=== PATIENT | male | born 1970 | race Caucasian/White ===

== ENCOUNTER 2022-03-01 12:43 | Outpatient (REF) | payer OTHER, SELFPAY ==
--- NOTE | ~2022-03-01 | XR_ITS ---
EXAMINATION: XR FINGER, LEFT CLINICAL INFORMATION: Pain around nailbed index finger. Assess for foreign body. COMPARISON: None TECHNIQUE: AP view left hand and 2 views left index finger are obtained. FINDINGS: Normal bony mineralization. No fracture, dislocation, destructive process, or periostitis. No visible radiopaque soft tissue from body or gas tracking in the soft tissue planes. There are osteoarthritic changes first carpometacarpal joint. XR/XR finger LT min 2V IMPRESSION: -No visible radiopaque soft tissue foreign body, gas tracking in soft tissues, destructive process. -Osteoarthritis first carpometacarpal joint.
== END 2022-03-01 12:44 | disposition home or self-care (01) ==
LOC: HO.XRAY 12:43
PROVIDERS: PCP Internal Medicine; Visit Provider Emergency Medicine
DX: S60.451A Superficial foreign body of left index finger, initial encounter (principal); X58.XXXA Exposure to other specified factors, initial encounter; Y93.9 Activity, unspecified; Y92.9 Unspecified place or not applicable; Y99.9 Unspecified external cause status
CPT/HCPCS: 73140

== ENCOUNTER → 2022-03-06 10:29 | Outpatient (BNVA) | payer OTHER, SELFPAY | PROVIDERS: PCP Internal Medicine; Visit Provider Physician Assistant | DX: S60.451A Superficial foreign body of left index finger, initial encounter (principal) | CPT/HCPCS: 99202 ==

== ENCOUNTER 2022-04-01 07:51 | Day surgery (SDC) | payer OTHER, SELFPAY ==
[2022-04-01 08:19] VITALS: BP 159/94; PULSE 82; RESP 16; TEMP 36.3; O2SAT 98
[2022-04-01 08:20] VITALS: BMI 32.8
[2022-04-01 09:48] VITALS: BP 131/91; PULSE 78; RESP 16; TEMP 36.2; O2SAT 95
--- NOTE | 2022-04-01 09:51 | MHC.SHP ---
Pre-Procedural Eval Section A Date of Service: 04/01/22 Section B Chief Complaint: FB Foreign body Allergies: Allergies Allergy/AdvReac Type Severity Reaction Status Date / Time No Known Allergies Allergy Verified 03/06/22 10:45 Plan I have reviewed the history and physical and performed a pertinent physical examination on my patient. No changes have occurred unless specified.
--- NOTE | 2022-04-01 10:03 | W.PM.OPN ---
Operative Note Operative Note Date of Service: 04/01/22 Narrative: Operative Note Preop diagnosis: 1. left index finger foreign body Postop diagnosis: same Procedure: 1. left index finger nail plate removal 2. left index finger removal of foreign body from nail bed Surgeon: Charlotte Ramos MD Anesthesia: digital block using 1% lidocaine with epinephrine Findings: fragments of brown foreign body were adherent to the underside of the nail plate. Evidence of injury to the radial aspect of the nail bed. Small piece of foreign body removed from the radial aspect of the nail bed. No other foreign bodies or masses appreciated. EBL: Less than 5 mL Tourniquet time: None Specimens: None Complications: None Disposition: Brought to recovery room in stable condition Plan: Follow-up for 7-10 days for wound check He may remove the dressing in 4 days and at that point wash the wound with soap and water. He can then put a small amount of antibiotic ointment on the nail bed daily. He should keep it clean for at least 2 weeks , until there was good healing. Anticipate new nail growth over the next few months. Indications: The patient is 51 years old, with left index finger foreign body beneath the nail plate . The risks and benefits of operative treatment including but not limited to risk of damage to blood vessels, nerves, tendons, infection, persistent pain, persistent symptoms, recurrence or possible need for additional surgery were discussed with the patient and the patient wishes to proceed with surgery. Procedure: Once consent was obtained a digital block was performed in the preop area using a combination of 1% lidocaine with epinephrine. The patient was then brought back to the operating suite and placed on the operative table in supine position. A tourniquet was applied to the proximal aspect of the left upper extremity and the limb was prepped and draped in a standard surgical fashion. Once assured that we had a good block, I used a [place] elevator to elevate the nail plate from the underlying nail bed, and to then remove the nail plate and placed on the back table. Along the radial aspect of the nail there was some brown foreign body fragments, presumed to be wooden splinters adherent to the under side of the radial aspect of the nail plate. I then evaluated the nail bed. There was a small dark piece of foreign body that I was able to remove from the radial aspect of the nail bed. No other foreign bodies and no masses were appreciated. Once satisfied with Nail plate removal and foreign body removal, the wound was copiously irrigated with normal saline and hemostasis was obtained with a brief period of local pressure. small amount of antibiotic ointment was placed on the nail bed and a sterile dressing was applied. The patient appears to have tolerated the procedure well and with no complications. All digits were well vascularized at the conclusion of the case.
== END 2022-04-01 10:00 | disposition home or self-care (01) ==
PROVIDERS: PCP Internal Medicine; Visit Provider Orthopaedic Surgery
PROC: (CPT 11730; principal; 2022-04-01 12:10)
DX: S60.451A Superficial foreign body of left index finger, initial encounter (principal); W45.8XXA Other foreign body or object entering through skin, initial encounter; Y93.H3 Activity, building and construction; Y92.69 Other specified industrial and construction area as the place of occurrence of the external cause; Y99.0 Civilian activity done for income or pay; E78.5 Hyperlipidemia, unspecified; E11.9 Type 2 diabetes mellitus without complications
CPT/HCPCS: 11730; 10120; J0171; J2795

== ENCOUNTER 2022-11-29 15:15 | Outpatient (REF) | payer OTHER, SELFPAY ==
--- NOTE | ~2022-11-29 | XR_ITS ---
EXAMINATION: XR CHEST CLINICAL INFORMATION: Cough COMPARISON: None available. TECHNIQUE: 2 views of the chest were obtained. FINDINGS: The cardiomediastinal silhouette is within normal limits. The lungs are well expanded. There is no focal consolidation, edema, or effusion. No pneumothorax. No acute osseous abnormality. Thoracic spine degeneration XR/XR chest 2V IMPRESSION: No acute pulmonary process seen.
[2022-11-29 16:40] LABS: Appearance Urine Clear; Color Urine Yellow; Glucose Urine UA Negative (Negative); Leukocyte Esterase Urine Negative (Negative); Nitrite Urine Negative (Negative); PH 5.5 (5.0-9.0); Urine Blood Negative (Negative); Urine Ketones Trace mg/dL (Negative); Urine Protein Negative (Neg-Trace)
[2022-11-29 17:38] LABS: Creatinine Urine 159.13 mg/dL; Microalbum/Creatinine Ratio Ur 6.9 ug/mg cr
[2022-11-29 17:51] LABS: Alanine Aminotransferase 34 U/L (0-40); Albumin Level 4.1 g/dL (3.5-5.0); Alkaline Phosphatase 67 U/L (39-117); Anion Gap 14 (12-20); Aspartate Amino Transferase 44 U/L (5-37); Blood Urea Nitrogen 15 mg/dL (9-16); Calcium 9.3 mg/dL (8.4-10.2); Carbon Dioxide 23 mmol/L (22-29); Chloride 108 mmol/L (96-108); Cholesterol 205 mg/dL; Estimated Glomerular Filt Rate > 60; Glucose Fasting 161 mg/dL (60-99); HDL Cholesterol 36 mg/dL; Potassium 3.9 mmol/L (3.3-5.1); Sodium 141 mmol/L (135-145); Total Protein 6.7 g/dL (6.5-8.0); Triglycerides 428 mg/dL
[2022-11-29 18:07] LABS: Prostate Specific Antigen Scr 0.43 ng/mL (<0.05-4.0); TSH reflex Free T4 0.67 uIU/mL (0.32-4.0)
== END 2022-11-29 15:16 | disposition home or self-care (01) ==
LOC: HO.HMGCX 15:15
PROVIDERS: PCP Family Medicine; Visit Provider Family Medicine
DX: Z00.00 Encounter for general adult medical examination without abnormal findings (principal); R05.9 Cough, unspecified; I10 Essential (primary) hypertension; Z12.5 Encounter for screening for malignant neoplasm of prostate
CPT/HCPCS: 36415; 71046; 80053; 80061; 81003; 82043; 84153; 84443

== ENCOUNTER 2023-01-31 09:59 | Outpatient (REF) | payer OTHER, SELFPAY ==
[2023-01-31 12:24] LABS: Cholesterol 362 mg/dL; HDL Cholesterol 34 mg/dL; Triglycerides 1375 mg/dL
[2023-02-02 10:58] LABS: LDL Cholesterol Direct 77 mg/dL (<100)
== END 2023-01-31 10:00 | disposition home or self-care (01) ==
LOC: HO.WFDLDS 09:59
PROVIDERS: Visit Provider Family Medicine
DX: Z00.00 Encounter for general adult medical examination without abnormal findings (principal); E78.5 Hyperlipidemia, unspecified
CPT/HCPCS: 36415; 80061; 83721

== ENCOUNTER 2023-02-21 14:03 | Outpatient (REF) | payer OTHER, SELFPAY ==
--- NOTE | ~2023-02-21 | XR_ITS ---
EXAMINATION: XR SHOULDER, RIGHT CLINICAL INFORMATION: Right shoulder pain COMPARISON: None available. TECHNIQUE: Three views of the right shoulder. FINDINGS: No acute abnormality. No fracture or subluxation. There is mild osteophyte formation at inferior aspect of glenohumeral joint. The humeral head is well-positioned over the glenoid. There is mild osseous hypertrophy of the greater tuberosity. No suspicious bone lesions. The clavicle and acromioclavicular joint are unremarkable. There are no prominent osteophytes projecting from the undersurface of the acromioclavicular joint and the subacromial space is maintained. No evidence of calcific tendinopathy. The visualized right lung is normal. The visualized right-sided ribs are intact. XR/XR shoulder RT min 2V IMPRESSION: * No fracture or malalignment at the right shoulder. * Mild osteoarthritis of the glenohumeral joint.
== END 2023-02-21 14:04 | disposition home or self-care (01) ==
LOC: HO.HMGCX 14:03
PROVIDERS: PCP Family Medicine; Visit Provider Family Medicine
DX: M25.511 Pain in right shoulder (principal)
CPT/HCPCS: 73030

== ENCOUNTER 2023-05-16 16:28 | Outpatient (AMB) | payer OTHER, SELFPAY ==
[2023-05-16 16:41] VITALS: BP 132/72; PULSE 89; O2SAT 98; BMI 34.9
--- NOTE | 2023-05-16 16:41 | A.OFFPC_ITS ---
Vital Signs 05/16/23 16:41 Height 5 ft 3 in Weight 197 lb BMI 34.9 BP 132/72 Blood Pressure Location Lt brachial Position Sitting Pulse 89 Pulse Source Pulse Oximeter Pulse Oximetry (%) 98 Oxygen Delivery Method Room Air Intake Visit Reasons: f/u HLD, diabetes, elevated liver enzymes Intake Note: Patient is here to follow up on HDL, diabetes, and liver enzymes. Allergies No Known Allergies Allergy (Verified 05/16/23 16:44) Medication List - Last Reconciled 05/16/23 by Saravanan Valle MD blood pressure test kit-large As directed blood sugar diagnostic (FreeStyle Lite Strips) As directed 2x/day cefadroxil 500 mg PO BID doxycycline hyclate 100 mg PO BID fenofibrate 160 mg PO DAILY 90 days lancets (FreeStyle Lancets) As directed 2x/day metformin 500 mg PO BID 30 days metoprolol succinate ER 12.5 mg (1/2 x 25 mg) PO DAILY 30 days Tobacco use date assessed: 05/16/23 Dental Screening Dental Screen Date: 05/16/23 Did you have a dental visit in the last 12 months?: Yes Did you have a dental problem in the last 6 months where you did not have access to dental care?: Yes Was dental information given to patient?: Patient has dentist HPI f/u HLD, diabetes, elevated liver enzymes HPI Details 52 y/o male presents to f/u HLD, diabet es, and elevated liver enzymes. Last A1c 01/31/23 7.6%. A1c today 05/16/23 is 9.2%. He reports he has not started on his metformin 500mg b.i.d. yet. Labs were drawn 01/31/23. Reviewed labs with pt. Triglycerides worsened from 428 to 1375. TC 362. LDL TNP. HDL low at 34. Had started him on fenofibrate last office visit. He notes he thinks he may have had eaten before he got his labs drawn. No recent liver enzymes. Blood pressure today 132/72. He is on metoprolol 12.5mg daily. Shoulder x-ray 02/21/23 showed mild osteoarthritis of the glenohumural joint of R shoulder. Pt reports a testicular bump that has not changed in 10 years. Pt reports heartburn all the time. 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 Hermes Becker, Cuca Martines, Pablo Dick and colleagues, with an educational saulo from [employer]. Review of Systems Const Denies chills, Denies fatigue, Denies fever(s), Denies headache(s) and Denies weakness ENT Denies dizziness and Denies headache(s) Card Denies dyspnea Resp Denies cough, Denies dyspnea, Denies wheezing and Denies other (shortness of breath) Musc Denies numbness and Denies tingling Neuro Denies dizziness, Denies headache(s), Denies numbness, Denies tingling and Denies weakness Psych Denies anxiety and Denies depression Endo Denies fatigue Aller/Immun Denies wheezing Physical exam (Primary Care) Vital Signs: Last Vital Signs Pulse 89 05/16/23 16:41 BP 132/72 05/16/23 16:41 Pulse Ox 98 05/16/23 16:41 Oxygen Delivery Method Room Air 05/16/23 16:41 BMI result Body Mass Index 34.9 Tobacco/Smoking Status: Tobacco use Status Tobacco use date assessed 05/16/23 05/16/23 16:51 Patient Tobacco Use Status Never used Tobacco 05/16/23 16:51 e-Cigarette/Vaping Use Never Used 05/16/23 16:42 Thrive Assessment: Date of Thrive Assessment Date Thrive assessed 11/06/22 05/16/23 16:42 Const General: well developed; No acute distress Nutritional Appearance: obese Orientation/consciousness: patient oriented x3 HENMT Head: Yes normocephalic and Yes atraumatic Eyes General: appearance normal, both eyes and all related structures Pupils: Equal, round and reactive pupils present EOM: EOMs intact bilaterally Resp Effort & Inspection: normal respiratory effort Neuro General: patient oriented x3 and gait normal Cranial nerves: Yes Equal, round and reactive pupils present Psych Affect: normal affect Assessment and Plan Assessment & Plan (1) Type 2 diabetes mellitus: Code(s): E11.9 - Type 2 diabetes mellitus without complications Plan: A1c has worsened to 9.2% from 7.6%. Goal is less than 7.0% Patient acknowledges that he has not tried metformin much at all. He agrees to try this and I encouraged him to work at consistency with this (2) Hyperlipemia: Code(s): E78.5 - Hyperlipidemia, unspecified Plan: Triglycerides were 428 Gave him a script for fenofibrate but he notes that he has not taken it much. More recently triglycerides were over a 1000 but patient acknowledges that he ages before having his labs drawn. Will repeat labs fasting Encouraged him to take fenofibrate consistently. Patient agrees. (3) Elevated liver enzymes: Code(s): R74.8 - Abnormal levels of other serum enzymes Plan: Due to repeat liver enzymes Order Will follow-up by telemedicine in a couple of weeks (4) Hypertension: Code(s): I10 - Essential (primary) hypertension Plan: Started patient on metoprolol at prior visit. Blood pressure is controlled. Goal is less than 140/90 Continue current medication regimen (5) Right shoulder pain: Code(s): M25.511 - Pain in right shoulder Plan: X-ray showed arthritis. Also likely has some tendinopathy-referred to physical therapy (6) GERD (gastroesophageal reflux disease): Code(s): K21.9 - Gastro-esophageal reflux disease without esophagitis Plan: Trial omeprazole Orders: Orders Comprehensive [place]. Panel Fast Today Z00.00 - Encounter for general adult medical examination without abnormal findings PT Evaluation and Treatment Today M25.511 - Pain in right shoulder Lipid Panel Today Z00.00 - Encounter for general adult medical examination without abnormal findings AMB Hemoglobin A1c Today Z13.9 - Encounter for screening, unspecified Medications: New omeprazole 20 mg PO DAILY 30 caps 1RF 30 days Coding Level of Care Code Est Pt Level 4 (83154) Diagnoses Type 2 diabetes mellitus E11.9 Hyperlipemia E78.5 Elevated liver enzymes R74.8 Hypertension I10 Right shoulder pain M25.511 GERD (gastroesophageal reflux disease) K21.9
== END 2023-05-16 17:18 | disposition home or self-care (01) ==
PROVIDERS: PCP Family Medicine; Visit Provider Family Medicine
DX: E11.9 Type 2 diabetes mellitus without complications (principal); I10 Essential (primary) hypertension; K21.9 Gastro-esophageal reflux disease without esophagitis; E78.5 Hyperlipidemia, unspecified; R74.8 Abnormal levels of other serum enzymes; M25.511 Pain in right shoulder
CPT/HCPCS: 99214

== ENCOUNTER 2023-05-26 09:20 | Outpatient (REF) | payer OTHER, SELFPAY ==
[2023-05-26 13:20] LABS: Alanine Aminotransferase 22 U/L (0-40); Albumin Level 4.2 g/dL (3.5-5.0); Alkaline Phosphatase 62 U/L (39-117); Anion Gap 12 (12-20); Aspartate Amino Transferase 25 U/L (5-37); Blood Urea Nitrogen 12 mg/dL (9-16); Calcium 9.8 mg/dL (8.4-10.2); Carbon Dioxide 23 mmol/L (22-29); Chloride 107 mmol/L (96-108); Cholesterol 218 mg/dL (<200); Estimated Glomerular Filt Rate > 60; Glucose Fasting 183 mg/dL (60-99); HDL Cholesterol 32 mg/dL (>40); LDL Cholesterol Calculated 121 mg/dL (<100); Sodium 138 mmol/L (135-145); Total Protein 7.1 g/dL (6.5-8.0); Triglycerides 325 mg/dL (<150)
== END 2023-05-26 09:21 | disposition home or self-care (01) ==
LOC: HO.HMGCLDS 09:20
PROVIDERS: PCP Family Medicine; Visit Provider Family Medicine
DX: Z00.00 Encounter for general adult medical examination without abnormal findings (principal)
CPT/HCPCS: 36415; 80053; 80061

== ENCOUNTER 2023-06-05 14:19 | Outpatient (AMB) | payer OTHER, SELFPAY ==
--- NOTE | 2023-06-05 14:14 | MHC.PC.OV ---
Intake Visit Reasons: f/u labs Intake Note: Patient is calling to follow up on his blood work today. Allergies No Known Allergies Allergy (Verified 06/05/23 14:15) Tobacco use date assessed: 06/05/23 HPI f/u labs HPI Details 52 y/o male presents to f/u labs via telemedicine. Labs were drawn 05/26/23. Reviewed labs with pt. Fasting glucose 185. Triglycerides improved from 1375 to 325. TC 218. LDL 121. HDL low at 32. He had noted last office visit he had fries before his labs. Liver enzymes within normal range. He notes he had started walking for exercise. 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 Hermes Becker, Cuca Martines, Pablo Dick and colleagues, with an educational saulo from [employer]. Physical exam (Primary Care) Tobacco/Smoking Status: Tobacco use Status Tobacco use date assessed 06/05/23 06/05/23 14:17 Patient Tobacco Use Status Never used Tobacco 06/05/23 14:17 e-Cigarette/Vaping Use Never Used 06/05/23 14:17 Thrive Assessment: Date of Thrive Assessment Date Thrive assessed 11/06/22 06/05/23 14:17 Telehealth Telehealth Location of provider rendering services: practice address Location of patient: address on file Patient Identification confirmed using: Name, : Yes Telehealth method: voice only Patient verbally consented to treatment: Yes Patient verbally consented to billing insurance company: Yes Patient informed of any privacy concerns related to visit: Yes Minutes spent on Phone/Video with Pt.: 8 Assessment and Plan Assessment & Plan (1) Hyperlipemia: Code(s): E78.5 - Hyperlipidemia, unspecified Plan: Triglycerides?were?over?a?1000?at?last?check?but?patient?noted?that?he?did?not?fast?well. Repeated?this?and?triglycerides?at?325?which?is?more?consistent?with?his?prior?testing?at?428 Encouraged?him?to?work?at?more?consistency?with?fenofibrate Will?recheck?in?a?few?months (2) Elevated liver enzymes: Code(s): R74.8 - Abnormal levels of other serum enzymes Plan: Repeat?of?liver?enzyme?show?that?they?are?back?within?normal?range (3) Low HDL (under 40): Code(s): E78.6 - Lipoprotein deficiency Plan: Low?HDL.??I?encouraged?exercise Will?recheck?in?a?few?months Orders: Orders Comprehensive [place]. Panel Fast Today R74.8 - Abnormal levels of other serum enzymes, Z00.00 - Encounter for general adult medical examination without abnormal findings Lipid Panel Today E78.6 - Lipoprotein deficiency, Z00.00 - Encounter for general adult medical examination without abnormal findings Coding Level of Care Code Tele Est Pt Level 2 (02987) Diagnoses Hyperlipemia E78.5 Elevated liver enzymes R74.8 Low HDL (under 40) E78.6
== END 2023-06-05 16:50 ==
LOC: HO.HMGFM 14:19
PROVIDERS: PCP Family Medicine; Visit Provider Family Medicine
DX: E78.5 Hyperlipidemia, unspecified (principal); R74.8 Abnormal levels of other serum enzymes; E78.6 Lipoprotein deficiency
CPT/HCPCS: 99212

== ENCOUNTER 2024-03-22 15:30 | Outpatient (AMB) | payer OTHER, SELFPAY ==
[2024-03-22 15:37] VITALS: BP 118/76; PULSE 99; O2SAT 98; BMI 33.9
--- NOTE | 2024-03-22 15:37 | MHC.PC.OV ---
Vital Signs 03/22/24 15:37 Height 5 ft 3 in Weight 191 lb 6 oz BMI 33.9 BP 118/76 Blood Pressure Location Rt brachial Position Sitting Pulse 99 Pulse Source Pulse Oximeter Pulse Oximetry (%) 98 Oxygen Delivery Method Room Air Intake Visit Reasons: BP follow up/needs A1C Intake Note: Aliza is a 53 year old male who presents to the office today for a BP follow up/ A1C done. Allergies No Known Allergies Allergy (Verified 03/22/24 15:41) Medication List - Last Reconciled 03/22/24 by Saravanan Valle MD blood pressure test kit-large As directed blood sugar diagnostic (FreeStyle Lite Strips) As directed 2x/day fenofibrate 160 mg PO DAILY 90 days lancets (FreeStyle Lancets) As directed 2x/day metformin 500 mg PO BID 30 days metoprolol succinate ER 12.5 mg (1/2 x 25 mg) PO DAILY 30 days omeprazole 20 mg PO DAILY 30 days Tobacco use date assessed: 06/05/23 Dental Screening Dental Screen Date: 03/22/24 Did you have a dental visit in the last 12 months?: Yes Did you have a dental problem in the last 6 months where you did not have access to dental care?: No Was dental information given to patient?: Patient has dentist HPI BP follow up/needs A1C HPI Details 53 y/o male presents to f/u hyperlipidemia including hypertriglyceridemia. He is on fenofibrate. No recent labs to review. A1c today 03/22/24 is 9.1%. He is on metformin 500mg b.i.d. Has not been taking metformin consistently. Blood pressure today 118/76. He is on metoprolol 12.5mg daily. 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 1. Little interest or pleasure in doing things: not at all 2. Feeling down, depressed, or hopeless: not at all 3. Trouble falling or staying asleep, or sleeping too much: several days 4. Feeling tired or having little energy: not at all 5. Poor appetite or overeating: not at all 6. Feeling bad about yourself - or that you are a failure or have let yourself or your family down: not at all 7. Trouble concentrating on things, such as reading the newspaper or watching television: not at all 8. Moving or speaking so slowly that other people could have noticed. Or the opposite - being so fidgety or restless that you have been moving around a lot more than usual: not at all 9. Thoughts that you would be better off or of hurting yourself in some way: not at all Total score: 1 Source: Developed by Drs. Hermes Becker, Cuca Martines, Pablo Dick and colleagues, with an educational saulo from [employer]. Thrive Questionnaire Date Thrive assessed: 03/22/24 I am a: Patient What is your living situation today?: I have a steady place to live Within the past 12 months, did the food you bought not last and you didn't have the money to get more?: Never true Within the past 12 months, did you worry whether your food would run out before you got money to buy more?: Never true Do you have trouble paying for medicines?: No Do you have trouble getting transportation to medical appointments?: No Do you have trouble paying your heating and electricity bill?: No Do you have trouble taking care of your child, family member or friend?: No Do you have trouble with day-to-day activities such as bathing, preparing meals, shopping, managing finances, etc.?: No Are you currently unemployed and looking for a job?: No Are you interested in more education?: No THRIVE Score: 0 AUDIT C Alcohol Use Questionnaire (AUDIT-C) 1. How often do you have a drink containing alcohol?: Monthly or less 2. How many drinks containing alcohol do you have on a typical day when you are drinking?: 1 or 2 3. How often do you have six or more drinks on one occasion?: Never Total Score: 1 RICHARD-7 AMB Questionnaire RICHARD-7 Date RICHARD - 7 assessed: 03/22/24 Feeling nervous, anxious, or on edge: 0 = Not at all Not being able to stop or control worryin = Not at all Worrying too much about different things: 0 = Not at all Trouble relaxin = Not at all Being so restless that it is hard to sit still: 0 = Not at all Becoming easily annoyed or irritable: 0 = Not at all Feeling afraid as if something awful might happen: 0 = Not at all Total RICHARD-7 score (0-4 normal; 5-9 mild; 10-14 moderate; 15-21 severe): 0 Source: Developed by Drs. Hermes Becker, Cuca Martines, Pablo Dick and colleagues, with an educational saulo from [employer]. Review of Systems Const Denies chills, Denies fatigue, Denies fever(s), Denies headache(s) and Denies weakness ENT Denies dizziness and Denies headache(s) Card Denies dyspnea Resp Denies cough, Denies dyspnea, Denies wheezing and Denies other (shortness of breath) Musc Denies numbness and Denies tingling Neuro Denies dizziness, Denies headache(s), Denies numbness, Denies tingling and Denies weakness Psych Denies anxiety and Denies depression Endo Denies fatigue Aller/Immun Denies wheezing Physical exam (Primary Care) Vital Signs: Last Vital Signs Pulse 99 03/22/24 15:37 BP 118/76 03/22/24 15:37 Pulse Ox 98 03/22/24 15:37 Oxygen Delivery Method Room Air 03/22/24 15:37 BMI result Body Mass Index 33.9 Tobacco/Smoking Status: Tobacco use Status Tobacco use date assessed 06/05/23 03/22/24 15:39 Patient Tobacco Use Status Never used Tobacco 03/22/24 15:39 e-Cigarette/Vaping Use Never Used 03/22/24 15:39 PHQ-9: PHQ-9 Score PHQ-9: Total score 1 03/22/24 15:45 Thrive Assessment: Date of Thrive Assessment Date Thrive assessed 03/22/24 03/22/24 15:45 Const General: well developed; No acute distress Nutritional Appearance: well nourished Orientation/consciousness: patient oriented x3 HENMT Head: Yes normocephalic and Yes atraumatic Eyes General: appearance normal, both eyes and all related structures Pupils: Equal, round and reactive pupils present EOM: EOMs intact bilaterally Resp Effort & Inspection: normal respiratory effort Skin Other: Insect sting on both anterior forearms which are red, erythematous with some stinging lesions/bite marlow Neuro General: patient oriented x3 and gait normal Cranial nerves: Yes Equal, round and reactive pupils present Psych Affect: normal affect Results AMB Hemoglobin A1c AMB Hemoglobin A1c 9.1 % Last Edit by Ann Fleming CMA on 03/22/24 15:54 Results Reviewed Results Reviewed: Laboratory Last Values Hgb A1c (Clinic) 9.1 % (4.0-6.0) H 03/22/24 15:54 Assessment and Plan Assessment & Plan (1) Type 2 diabetes mellitus: Code(s): E11.9 - Type 2 diabetes mellitus without complications Plan: A1c?9.1%?today.??Goal?is?less?than?7%? Patient?notes?that?he?has?not?been?taking?his?medication?as?prescribed He?will?work?at?consistency?with?medications Follow-up?in?about?3?months (2) Hypertension: Code(s): I10 - Essential (primary) hypertension Plan: Blood?pressure?is?controlled.??Goal?is?less?than?140/90 Continue?medication?as?prescribed (3) Hyperlipemia: Code(s): E78.5 - Hyperlipidemia, unspecified Plan: Triglycerides?had?been?high?and?improved?with?fenofibrate. LDL?cholesterol?was?high?and?HDL?was?low He?has?not?gotten?his?labs?drawn?and?I?asked?him?to?get?them?done?next?week.??Will?follow-up?by?telemedicine?in?about?a?month?to?adjust?medication?if?needed (4) Low HDL (under 40): Code(s): E78.6 - Lipoprotein deficiency Plan: As?above (5) Insect bite: Code(s): W57.XXXA - Bitten or stung by nonvenomous insect and other nonvenomous arthropods, initial encounter Plan: Insect?bites?on?bilateral?forearms?with?local?allergic?reaction Patient?declines?oral?steroid Gave?him?a?script?for?betamethasone?and?recommended?cold?compresses Orders: Orders Comprehensive [place]. Panel Fast Today E11.9 - Type 2 diabetes mellitus without complications, Z00.00 - Encounter for general adult medical examination without abnormal findings Lipid Panel Today E78.5 - Hyperlipidemia, unspecified, Z00.00 - Encounter for general adult medical examination without abnormal findings AMB Hemoglobin A1c Today E11.9 - Type 2 diabetes mellitus without complications Medications: New betamethasone valerate 0.1% 1 appl topical BID 14 days PRN 45 grams 0RF skin irritation Refilled fenofibrate 160 mg PO DAILY 90 days 90 tabs 3RF metformin 500 mg PO BID 30 days 60 tabs 2RF metoprolol succinate ER 12.5 mg (1/2 x 25 mg) PO DAILY 30 days 15 tabs 2RF Coding Level of Care Code Est Pt Level 4 (70126) Diagnoses Type 2 diabetes mellitus E11.9 Hypertension I10 Hyperlipemia E78.5 Low HDL (under 40) E78.6 Insect bite W57.XXXA
== END 2024-03-22 16:09 | disposition home or self-care (01) ==
PROVIDERS: PCP Family Medicine; Visit Provider Family Medicine
DX: E11.69 Type 2 diabetes mellitus with other specified complication (principal); I10 Essential (primary) hypertension; E78.5 Hyperlipidemia, unspecified; E78.6 Lipoprotein deficiency; W57.XXXA Bitten or stung by nonvenomous insect and other nonvenomous arthropods, initial encounter
CPT/HCPCS: 83036; 99214

== ENCOUNTER 2024-03-29 09:47 | Outpatient (REF) | payer OTHER, SELFPAY ==
[2024-03-29 14:33] LABS: Alanine Aminotransferase 20 U/L (0-40); Albumin Level 4.3 g/dL (3.5-5.0); Alkaline Phosphatase 63 U/L (39-117); Anion Gap 10 (12-20); Aspartate Amino Transferase 21 U/L (5-37); Bilirubin Total 0.9 mg/dL (0.0-1.0); Blood Urea Nitrogen 11 mg/dL (9-16); Carbon Dioxide 25 mmol/L (22-29); Chloride 108 mmol/L (96-108); Cholesterol 216 mg/dL (<200); Estimated Glomerular Filt Rate > 60; Glucose Fasting 176 mg/dL (60-99); HDL Cholesterol 35 mg/dL (>40); Potassium 4.2 mmol/L (3.3-5.1); Sodium 139 mmol/L (135-145); Total Protein 7.2 g/dL (6.5-8.0); Triglycerides 430 mg/dL (<150)
== END 2024-03-29 09:48 | disposition home or self-care (01) ==
LOC: HO.HMGCLDS 09:47
PROVIDERS: PCP Family Medicine; Visit Provider Family Medicine
DX: Z00.00 Encounter for general adult medical examination without abnormal findings (principal); E11.9 Type 2 diabetes mellitus without complications; E78.5 Hyperlipidemia, unspecified
CPT/HCPCS: 36415; 80053; 80061

== ENCOUNTER → 2024-04-26 16:15 | Outpatient (AMB) | payer OTHER, SELFPAY ==
--- NOTE | 2024-04-26 16:11 | A.OFFPC_ITS ---
Intake Visit Reasons: f/u labs via telemedicine Intake Note: f/u for lab review Allergies No Known Allergies Allergy (Verified 04/26/24 16:12) Tobacco use date assessed: 06/05/23 Dental Screening Dental Screen Date: 03/22/24 HPI f/u labs via telemedicine HPI Details 53 y/o male presents to review lipid [place] via telemedicine. Labs drawn 03/29/24. Reviewed labs with pt. Triglycerides worsened from 325 to 430. TC 216. LDL TNP. HDL low at 35. He is on fenofibrate 160mg daily. Liver enzymes are fine. HPI Comments History of Present Illness Details Documentation assistance for Saravanan Valle MD, was provided by Ranjan Carl, Management Department Chair on 04/26/2024 at 4:45 PM EST. I, Dr. Valle, have read, observed, and verified documentation. 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 Hermes Becker, Cuca Martines, Pablo Dick and colleagues, with an educational saulo from [employer]. Physical exam (Primary Care) Tobacco/Smoking Status: Tobacco use Status Tobacco use date assessed 06/05/23 04/26/24 16:14 Patient Tobacco Use Status Never used Tobacco 04/26/24 16:14 e-Cigarette/Vaping Use Never Used 04/26/24 16:14 Thrive Assessment: Date of Thrive Assessment Date Thrive assessed 03/22/24 04/26/24 16:14 Telehealth Telehealth Telehealth Platform: Telephone Location of provider rendering services: practice address Location of patient: address on file Patient Identification confirmed using: Name, : Yes Telehealth method: voice only Patient verbally consented to treatment: Yes Patient verbally consented to billing insurance company: Yes Patient informed of any privacy concerns related to visit: Yes Minutes spent on Phone/Video with Pt.: 5 Assessment and Plan Assessment & Plan (1) Hyperlipemia: Code(s): E78.5 - Hyperlipidemia, unspecified Plan: Patient?still?has?significantly?high?triglycerides. Will?have?him?continue?fenofibrate?and?add?Crestor Also?encouraging?him?to?control?his?blood?sugar?which?should?also ?improve?his?triglycerides Will?recheck?at?a?visit?subsequent?to?his?scheduled?visit?in?June. (2) Low HDL (under 40): Code(s): E78.6 - Lipoprotein deficiency Plan: Encouraged?increasing?exercise (3) Type 2 diabetes mellitus: Code(s): E11.9 - Type 2 diabetes mellitus without complications Plan: Patient's?A1c?was?too?high?at?last?visit He?is?now?taking?metformin?500?mg?b.i.d.?regularly?as?prescribed Will?follow-up?on?A1c?again?at?his?next?visit?in?June Medications: New rosuvastatin 20 mg PO DAILY 90 days 90 tabs 2RF E78.2 - Mixed hyperlipidemia Coding Level of Care Code Tele Est Pt Level 2 (19485) Diagnoses Hyperlipemia E78.5 Low HDL (under 40) E78.6 Type 2 diabetes mellitus E11.9
== END ==
LOC: HO.HMGFM 16:15
PROVIDERS: PCP Family Medicine; Visit Provider Family Medicine
DX: E78.5 Hyperlipidemia, unspecified (principal); E78.6 Lipoprotein deficiency; E11.9 Type 2 diabetes mellitus without complications
CPT/HCPCS: 99212

== ENCOUNTER 2024-06-26 10:31 | Inpatient (IN) | payer OTHER, SELFPAY ==
[2024-06-26] VITALS (7 sets, daily range): BP systolic 136–171; BP diastolic 61–103; PULSE 90–107; RESP 16–18; TEMP 36.5–37.2; O2SAT 97–99; BMI 35.1
--- NOTE | ~2024-06-26 | XR_ITS ---
EXAMINATION: XR HAND, LEFT CLINICAL INFORMATION: Left hand third digit swelling. COMPARISON: None available. TECHNIQUE: PA, lateral, and oblique views of the left hand. FINDINGS: Soft tissue swelling is noted in the proximal half of the third finger. There is no evidence of underlying osseous destruction or periosteal reaction. No focal erosion is seen. 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 Normal osseous mineralization. No evidence of acute/healing fracture or dislocation. Soft tissue swelling is also noted over the dorsum of the hand. No evidence of soft tissue air. No soft tissue calcifications or radiopaque foreign body are seen. XR/XR hand LT min 3V IMPRESSION: Soft tissue swelling in the left hand third finger and over the dorsum of the hand. No radiographic evidence of underlying osteomyelitis. No evidence of acute or healing fracture. Electronically signed by: Saqib Akins MD 06/26/2024 11:06 AM EDT
[2024-06-26 11:30] LABS: MANUAL DIFF FLAG NO
[2024-06-26 11:49] LABS: Alanine Aminotransferase 24 U/L (0-40); Alkaline Phosphatase 83 U/L (39-117); Anion Gap 12 (12-20); Aspartate Amino Transferase 29 U/L (5-37); Bilirubin Total 1.5 mg/dL (0.0-1.0); Blood Urea Nitrogen 10 mg/dL (9-16); Calcium 9.7 mg/dL (8.4-10.2); Carbon Dioxide 23 mmol/L (22-29); Chloride 104 mmol/L (96-108); Creatinine Clr Calc Pharmacy 86.9; Estimated Glomerular Filt Rate > 60; Glucose Random 241 mg/dL (60-115); Potassium 3.9 mmol/L (3.3-5.1); Sodium 135 mmol/L (135-145); Total Protein 6.9 g/dL (6.5-8.0)
[2024-06-26 11:50] LABS: Basophils Percent Auto 0.2 % (0-2); Eosinophils Absolute Auto 0.1 X10*3/uL (0.0-0.4); Eosinophils Percent Auto 0.9 % (0-4); Hematocrit 43.5 % (42.0-52.0); Hemoglobin 15.4 g/dl (14.0-18.0); Imm Gran Abs Auto 0.04 X10*3/uL (0.00-0.03); Imm Gran Pct Auto 0.5 % (0.0-0.4); Lymphocytes Absolute Auto 1.4 X10*3/uL (1.2-4.9); Lymphocytes Percent Auto 16.3 % (20-40); Mean Corpuscular HGB Conc 35.4 g/dl (31.0-36.0); Mean Corpuscular Volume 87.5 fL (80.0-98.0); Mean Platelet Volume 11.2 fL (9.4-12.4); Monocytes Absolute Auto 0.7 X10*3/uL (0.1-1.2); Monocytes Percent Auto 8.2 % (2-11); Neutrophils Absolute Auto 6.3 x10*3/uL (2.0-8.3); Neutrophils Percent Auto 73.9 % (45-73); Platelet Count 142 X10*3/uL (160-400); Red Blood Count 4.97 X10*6/uL (4.60-5.80); Red Cell Distribution Width 12.4 % (11.0-16.0); White Blood Count 8.6 X10*3/uL (4.8-10.8)
--- NOTE | 2024-06-26 12:22 | ED_ITS ---
HPI - Wound/Laceration General Chief Complaint: Wound/Laceration Stated Complaint: l hand swelling and mid finger inj at work Time Seen by Provider: 06/26/24 11:01 Source: patient Mode of arrival: ambulatory Limitations: no limitations History of Present Illness ED Provider: Pilar Angel APRN HPI narrative: 53 yo male right-hand dominant here with complaints of 1 week of left 3rd digit swelling, redness, pain and difficulty with movement. Denies any fevers, chills, numbness, tingling of the extremities. Of note patient reports he has history of diabetes but is noncompliant with medication. Related Data Home Medications ?Medication ?Instructions ?Recorded ?Confirmed blood pressure test kit-large #1 ea 03/06/22 03/22/24 Previous Rx's ?Medication ?Instructions ?Recorded blood sugar diagnostic (FreeStyle #50 ea 05/08/23 Lite Strips) lancets 28 gauge (FreeStyle #100 ea 05/08/23 Lancets) fenofibrate 160 mg tablet 160 mg PO DAILY 90 days #90 tabs 03/22/24 metformin 500 mg tablet 500 mg PO BID 30 days #60 tabs 03/22/24 metoprolol succinate 25 mg 12.5 mg (1/2 x 25 mg) PO DAILY 30 06/25/24 tablet,extended release 24 hr days #15 tabs Allergies Allergy/AdvReac Type Severity Reaction Status Date / Time No Known Allergies Allergy Verified 06/26/24 10:41 Review of Systems 2 Review of Systems: Yes all other systems are reviewed and are negative Constitutional: Constitutional: Reports no additional constitutional complaints, Denies body ache(s), Denies chills, Denies fever(s), Denies headache(s) and Denies weakness Eyes: Eyes: Reports no additional eye complaints and Denies change in vision ENT: Reports system reviewed and no additional complaints, except as documented, Denies dizziness, Denies headache(s), Denies nasal congestion, Denies nasal discharge and Denies neck pain Cardiovascular: Cardiovascular: Reports no additional cardiovascular complaints, Denies chest pain, Denies leg edema and Denies dyspnea Respiratory: Respiratory: Reports no additional respiratory complaints, Denies cough and Denies dyspnea Gastrointestinal: Gastrointestinal: Reports no additional gastrointestinal complaints, Denies abdominal pain, Denies diarrhea, Denies nausea and Denies vomiting Genitourinary: Genitourinary: Denies urinary incontinence Musculoskeletal: Musculoskeletal: Reports no additional musculoskeletal complaints, Denies back pain, Reports arthralgias, Reports joint swelling, Reports limited range of motion, Denies neck pain, Denies numbness and Denies tingling Integumentary/Breasts: Skin/Breast: Reports system reviewed and no additional complaints, except as docu, Reports swelling, Reports erythema and Denies rash Neurologic: Reports system reviewed and no additional complaints, except as documented, Denies Abnormal speech present, Denies dizziness, Denies headache(s), Denies numbness, Denies tingling and Denies weakness [facility] Past Medical History Attestation statement: The following information was validated with the patient. 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 Cognitive needs: No Hearing needs: No Vision needs: No Physical Exam 2 Vital Signs: Vital Signs: Last Vital Signs Temp 97.7 F 06/26/24 12:55 Pulse 102 H 06/26/24 12:55 Resp 18 06/26/24 12:55 BP 144/100 H 06/26/24 12:55 Pulse Ox 97 06/26/24 12:55 O2 Del Method Room Air 06/26/24 12:55 BMI result Body Mass Index 35.1 Const: General: cooperative, healthy appearing, comfortable and no acute distress Orientation/consciousness: patient oriented x3 Limitations: no limitations HEENT: Head: Yes normal to inspection Ears: hearing grossly normal bilaterally General nose exam: Normal external nose present Face and sinus: Yes normal facial exam Mouth: Normal oral and palatal mucosa present Throat: Yes posterior oropharynx normal Eyes: General: appearance normal, both eyes and all related structures P upils: Equal, round and reactive pupils present Neck: Neck: Yes normal visual inspection Chest: Chest palpation & inspection: normal inspection of the chest Resp: Effort & Inspection: normal respiratory effort Auscultation: clear to auscultation bilaterally Cardio: Rate: regular rate Rhythm: regular rhythm Peripheral pulses: P eripheral pulses 2+ throughout GI: Inspection: Yes normal to inspection Palpation (GI): Soft to palpation and nontender Auscultation: normal bowel sounds Back/Spine/Pelvis: Thoracic/Lumbar Spine: thoracic and lumbar spine normal to inspection Skin: General skin exam: no rashes or lesions noted Neuro: General: patient oriented x3, no focal motor deficits and normal sensation to monofilament Cranial nerves: Yes Equal, round and reactive pupils present Cognition (Neuro): normal cognition Speech: No Abnormal speech present Gait exam (Neuro): Normal gait present Motor exam (neuro): 5/5 motor strength present throughout Extrem: Other: Patient has finger held in partial flexion, has pain with attempting extension and is unable and with palpation along the flexor tendon sheath. Compartments are soft and compressible. Sensation normal. FROM of the hand/wrist with no diff Medications Administered Discontinued Medications Generic Name Dose Route Start Last Admin Trade Name Freq PRN Reason Stop Dose Admin Piperacillin Sod/Tazobactam 50 mls @ 100 mls/hr 06/26/24 12:54 06/26/24 13:51 Sod 3.375 gm/ Sodium Chloride IV 06/26/24 13:23 100 mls/hr ONCE ONE Administration Lidocaine HCl 2 ml 06/26/24 12:07 06/26/24 13:32 Lidocaine Hcl 1 % Mpf 2 Ml Vial INFILTRATI 06/26/24 12:08 Not Given ONCE ONE Medical Decision Making Medical Decision Making MDM Narrative: 53 yo male right hand dominant with history of diabetes non med compliant here with clinical tenosynovitis of his left 3rd digit. Will need labs, x-ray Will need IV antibiotics, discussion with Orthopedics and Medicine Differential Diagnosis Differential Diagnoses: The differential diagnosis associated with the presentation includes Tenosynovitis, cellulitis Admission/Observation Consideration of admission/observation: Escalation of care including admission/observation considered Clinical tenosynovitis requiring IV antibiotics and admission Consult Healthcare Provider Management of the patient was discussed with: Hospitalist and Returned Materials Inspector Admitted to medicine 1315 (Celestine) Spoke to orthopedic 1230pm (Heather DANG) recommended admission based on discretion of ER provider with IV antibiotics and warm compresses Lab Data MDM Lab Attestation statement: I reviewed the patient's lab results. 06/26/24 11:24 06/26/24 11:24 Labs: Lab Results 06/26/24 06/26/24 Range/Units 11:24 13:33 WBC 8.6 (4.8-10.8) X10*3/uL RBC 4.97 (4.60-5.80) X10*6/uL Hgb 15.4 (14.0-18.0) g/dl Hct 43.5 (42.0-52.0) % MCV 87.5 (80.0-98.0) fL MCH 31.0 (27.0-33.0) pg MCHC 35.4 (31.0-36.0) g/dl RDW 12.4 (11.0-16.0) % Plt Count 142 L (160-400) X10*3/uL MPV 11.2 (9.4-12.4) fL Immature Gran % (Auto) 0.5 H (0.0-0.4) % Neut % (Auto) 73.9 H (45-73) % Lymph % (Auto) 16.3 L (20-40) % [place] % (Auto) 8.2 (2-11) % Eos % (Auto) 0.9 (0-4) % Baso % (Auto) 0.2 (0-2) % Lymph # (Auto) 1.4 (1.2-4.9) X10*3/uL [place] # (Auto) 0.7 (0.1-1.2) X10*3/uL Eos # (Auto) 0.1 (0.0-0.4) X10*3/uL Baso # (Auto) 0.0 (0.0-0.2) X10*3/uL Abs Immat Gran (auto) 0.04 H (0.00-0.03) X10*3/uL Absolute Neuts (auto) 6.3 (2.0-8.3) x10*3/uL Absolute Nucleated RBC 0.000 (0.0-0.012) X10*3/uL Nucleated RBC % (auto) 0.0 (0.0-0.2) /100WBC ESR 13 (0-15) MM/HR Sodium 135 (135-145) mmol/L Potassium 3.9 (3.3-5.1) mmol/L Chloride 104 (96-108) mmol/L Carbon Dioxide 23 (22-29) mmol/L Anion Gap 12 (12-20) BUN 10 (9-16) mg/dL Creatinine 0.95 (0.5-1.4) mg/dL Estim Creat Clear Calc 86.9 Estimated GFR > 60 Random Glucose 241 H (60-115) mg/dL Lactic Acid 1.1 (0.5-2.0) mmol/L Calcium 9.7 (8.4-10.2) mg/dL Total Bilirubin 1.5 H (0.0-1.0) mg/dL AST 29 (5-37) U/L ALT 24 (0-40) U/L Alkaline Phosphatase 83 (39-117) U/L C-Reactive Protein 1.41 H (< or = 0.50) mg/dL Total Protein 6.9 (6.5-8.0) g/dL Albumin 4.0 (3.5-5.0) g/dL Independent Interpretation I performed an independent interpretation of an: Plain X-Ray Interpretation: I independently viewed the x-ray and agree with the radiology report Radiology Impression Discussion of test interpretation with radiology: I have reviewed the radiologist's reading. Radiologist Impression: [place] [id number] XRay Report Signed Patient: Aliza Douglas MR#: [id number] : 1970 Acct:[id number] Age/Sex: 53 / M ADM Date: 06/26/24 Loc: HO.ED Attending Dr: Ordering Physician: Generic ED Physician Date of Service: 06/26/24 Procedure(s): XR hand LT min 3V Accession Number(s): [id number] cc: Generic ED Physician; Saravanan Valle MD~ EXAMINATION: XR HAND, LEFT CLINICAL INFORMATION: Left hand third digit swelling. COMPARISON: None available. TECHNIQUE: PA, lateral, and oblique views of the left hand. FINDINGS: Soft tissue swelling is noted in the proximal half of the third finger. There is no evidence of underlying osseous destruction or periosteal reaction. No focal erosion is seen. 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 Normal osseous mineralization. No evidence of acute/healing fracture or dislocation. Soft tissue swelling is also noted over the dorsum of the hand. No evidence of soft tissue air. No soft tissue calcifications or radiopaque foreign body are seen. XR/XR hand LT min 3V IMPRESSION: Soft tissue swelling in the left hand third finger and over the dorsum of the hand. No radiographic evidence of underlying osteomyelitis. No evidence of acute or healing fracture. Electronically signed by: Saqib Akins MD 06/26/2024 11:06 AM EDT Workstation: [id number] Independent Historian Clinical information obtained from an independent historian. History obtained from or confirmed by: Friend Critical Care Time Critical Care Time Critical Care Time: Yes Total Critical Care Time: 60 Attestation: Clinical tenosynovitis requiring discussion with hospitalist, orthopedic medicine in conjunction with my attending, admission required Discharge Plan Discharge Clinical Impression: Tenosynovitis Patient Disposition: Admitted As Inpatient
[2024-06-26] MEDS: Piperacillin Sodium/Tazobactam 3.375 GM in 0.9 % Sodium Chloride 50 ML IV ×2 (13:51→20:42)
[2024-06-26 13:57] LABS: C Reactive Protein 1.41 mg/dL (< or = 0.50)
[2024-06-26 14:03] LABS: Lactic Acid 1.1 mmol/L (0.5-2.0)
[2024-06-26 14:11] LABS: Erythrocyte Sedimentation Rate 13 MM/HR (0-15)
--- NOTE | 2024-06-26 14:29 | P.HPHOSP_ITS ---
History of Present Illness Date of Service: 06/26/24 Chief Complaint: Left 3rd finger swelling redness and pain 53-year-old gentleman with past medical history significant for diabetes mellitus type 2, hyperlipidemia, hypertension presented to [facility] due to left 3rd finger redness, swelling of several days duration, now worsening and spreading towards dorsum of hand, as per patient he cut his left 3rd finger with a knife 1 week ago, he cleansed it with alcohol swab, use antibiotic cream and Band-Aid, it was healing well but 5 days ago on Friday he mixed cement with water, and used left hand without gloves to mixed dirty water with the cement and in the evening he noted the cut opened up again, he applied antibiotic cream and Band-Aid but noted to have persistent swelling, redness, and today his friend pointed out that redness is spreading towards dorsum of hand, that made him concerned and come to the ED,he complaints of associated chills, no fevers ,denies nausea, no vomiting, no lightheadedness, dizziness, workup in the emergency room showed a blood sugar of 241 normal WBC, normal electrolytes and renal function, lactic acid 1.1, CRP 1.41, x-ray of hand showed no osteomyelitis but soft tissue swelling 3rd finger and dorsum of hand, blood pressure 144/100 no fevers pulse 102 normal respiratory rate, patient received IV vancomycin and Zosyn , ED provider spoke with orthopedic surgery they recommend medicine to admit patient and use warm soaks. Review of Systems 2 Review of Systems: General no headache no dizziness no fever CVS no chest pain, no palpitation. Respiratory no cough ,no sob Gastrointestinal no nausea, no vomiting, no abdominal pain no urgency no frequency All other system reviewed and are negative [facility] Medical History Type 2 diabetes mellitus Perineal fissure Hyperlipemia Family History Mother High blood pressure Father Diabetes Social History Housing: House Patient Tobacco Use Status: Never used Tobacco e-Cigarette/Vaping Use: Never Used Use of substances other than those prescribed or required for medical reasons: Yes Advance Directives: No Advance Directives Information Provided: No Do you have a plan to hurt others: No Plan Current occupational status: employed 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, 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 Cognitive needs: No Hearing needs: No Vision needs: No Meds Allergies Allergy/AdvReac Type Severity Reaction Status Date / Time No Known Allergies Allergy Verified 06/26/24 10:41 Active Medications: Current Medications Acetaminophen (Acetaminophen 325 Mg Tablet) 650 mg PO Q6H PRN PRN Reason: Pain, Mild (Pain Scale 1-3), fever or headache Calcium Carbonate (Calcium Carbonate 750 Mg Tab.Chew) 750 mg PO Q4H PRN PRN Reason: Heartburn Enoxaparin Sodium (Enoxaparin Sodium 40 Mg/0.4 Ml Syringe) 40 mg SUBCUT Q24H PETER Piperacillin Sod/Tazobactam (Sod 3.375 gm/ Sodium Chloride) 50 mls @ 100 mls/hr IV Q6H PETER Vancomycin HCl 1,500 mg/ (Sodium Chloride) 500 mls @ 333.333 mls/hr IV ONCE ONE Stop: 06/26/24 15:55 Magnesium Hydroxide (Milk Of Magnesia 30 Ml Oral.Susp) 30 ml PO DAILY PRN PRN Reason: Constipation Melatonin (Melatonin 3 Mg Tablet) 6 mg PO BEDTIME PRN PRN Reason: Insomnia Ondansetron HCl (Ondansetron Hcl 4 Mg/2 Ml Vial) 4 mg IVPUSH Q8H PRN PRN Reason: Nausea and Vomiting Pharmacy Consult (Consult Rx Vancomycin Dosing) 1 each MISCELLANE DAILY PRN PRN Reason: Consult order Sodium Chloride (0.9 % Sodium Chloride Flush 3 Ml Syringe) 3 ml IVFLUSH QSHIFT [facility] Home Medications ?Medication ?Instructions ?Recorded ?Confirmed ?Last Taken ?Type blood pressure test kit-large #1 ea 03/06/22 03/22/24 Unknown History Physical Exam 2 Vital Signs and Narrative: Vital Signs: Last Vital Signs Temp 97.7 F 06/26/24 12:55 Pulse 102 H 06/26/24 12:55 Resp 18 06/26/24 12:55 BP 144/100 H 06/26/24 12:55 Pulse Ox 97 06/26/24 12:55 O2 Del Method Room Air 06/26/24 12:55 BMI result Body Mass Index 35.1 Const: Other: General resting comfortably in no acute distress. Anicteric sclera. Neck supple no JVD. CVS regular rate rhythm, Respiratory lungs clear to auscultation, no respiratory distress, no wheeze, no rhonchi. Gastrointestinal abdomen soft, non tender, bowel sounds audible, no guarding , no rigidity. Extremities no LE edema. Neuro non focal Skin no rash Psych appropriate affect Left hand 3rd finger swollen , warm ,hyperemic, no drainage from the cut, redness extending to dorsum of hand, pain with extension Results Labs 06/26/24 11:24 06/26/24 11:24 Labs: Laboratory Results - last 24 hr 06/26/24 06/26/24 11:24 13:33 MCV 87.5 MCH 31.0 MCHC 35.4 RDW 12.4 Plt Count 142 L MPV 11.2 Immature Gran % (Auto) 0.5 H Neut % (Auto) 73.9 H Lymph % (Auto) 16.3 L [place] % (Auto) 8.2 Eos % (Auto) 0.9 Baso % (Auto) 0.2 Lymph # (Auto) 1.4 [place] # (Auto) 0.7 Eos # (Auto) 0.1 Baso # (Auto) 0.0 Abs Immat Gran (auto) 0.04 H Absolute Neuts (auto) 6.3 Absolute Nucleated RBC 0.000 Nucleated RBC % (auto) 0.0 ESR 13 Anion Gap 12 Estim Creat Clear Calc 86.9 Estimated GFR > 60 Random Glucose 241 H Lactic Acid 1.1 Calcium 9.7 Total Bilirubin 1.5 H AST 29 ALT 24 Alkaline Phosphatase 83 C-Reactive Protein 1.41 H Total Protein 6.9 Albumin 4.0 Imaging Radiologist's Impressions: Impressions Hand X-Ray 06/26/24 10:45 IMPRESSION: Soft tissue swelling in the left hand third finger and over the dorsum of the hand. No radiographic evidence of underlying osteomyelitis. No evidence of acute or healing fracture. Electronically signed by: Saqib Akins MD 06/26/2024 11:06 AM EDT RP Assessment and Plan (1) Tenosynovitis: Status: Acute (2) Type 2 diabetes mellitus: Status: Acute (3) Hyperlipemia: Status: Acute Plan 53-year-old gentleman with past medical history significant for hypertension, type 2 diabetes mellitus, hyperlipidemia in class 2 obesity presented with left 3rd fingers swelling redness and limited range of motion likely tenosynovitis/cellulitis, x-ray showed no collection of fluid. Left 3rd finger/hand cellulitis/tenosynovitis. No sepsis Continue IV vanco/IV Zosyn started on 06/26 Ortho consult/pain management Diabetes mellitus type 2 with hyperglycemia Refusing insulin Monitor point of care and place on glipizide, hold metformin Hyperlipidemia continue fenofibrate Hypertension resume metoprolol and follow BP Class 2 obesity recommend low-calorie diet and exercise. Full code Lovenox In my clinical judgment patient need two night inpatient hospitalization for treatment of left 3rd finger cellulitis/tenosynovitis requiring IV antibiotic and expert consultation. Quality Stroke Does the patient have a stroke diagnosis?: No VTE Prior VTE?: No VTE Risk Level:: Medical - moderate - high VTE Device Contraindication: Treatment Not Indicated VTE Drug Contraindication: N/A - Med Ordered
--- NOTE | 2024-06-26 14:36 | PHA.MEDREC ---
Addendum entered by Virgilio Odell 06/26/24 14:38: Reviewed Original Note: Pharmacy Consult ? Medication Reconciliation Pharmacy has completed the medication reconciliation. Spoke with patient to confirm medications. He reports he has not taken his medications in a few weeks. Per [facility], he never picked up rosuvastatin. Patient confirmed he only has fenofibrate.
[2024-06-26] MEDS: vancomycin HCL 1,500 MG in 0.9 % Sodium Chloride 500 ML 333.33 MG IV (15:00)
--- NOTE | 2024-06-26 15:11 | PHA.PROG ---
Admission Date/Time: June 26, 2024 14:24 Indication: Skin Weight in k kg Adjusted body weight in Kg: [place] body weight in Kg: Obesity Dosing Indication % IBW: Serum Creatinine - Last 168 Hours 06/26/24 11:24 Creatinine 0.95 Estimated CrCl and GFR - Last 168 Hours 06/26/24 11:24 Estim Creat Clear Calc 86.9 Estimated GFR > 60 Vancomycin Loading Dose: 1500 mg Current Vancomycin Dosing Regimen: 1250mg q12h Vancomycin Monitoring using AUC goal of 400 - 600 range with trough as surrogate marker: 572 mg/L Date and Time for next Vancomycin Level to be drawn: 06/28/2024 @0600 Pharmacist Comments on Vancomycin Plan: Opting for slightly higher dose due to reduced loading dose given in ER. Projected trough is 18.1 mg/L, could change to 1g q12h if level before 4th dose is trending high. Vancomycin dosing will take advantage of [employer] as a clinical decision support tool that uses Bayesian modeling to calculate individual patient's pharmacokinetic parameters and forecast the patient's drug concentration time course with the target goal AUC 24 range of 400 - 600 mg/L/hr.
[2024-06-26] MEDS: oxyCODONE HCl Immed Release 5 MG TABLET PO (15:57)
[2024-06-26 16:18] LABS: Glucose, Whole Blood 254 mg/dL (60-115)
[2024-06-26] MEDS: Metoprolol Succinate ER 12.5 MG HALFTAB.ER.24H PO (16:23)
[2024-06-26] MEDS: glipiZIDE XL 5 MG TAB.ER.24 PO (16:24)
[2024-06-26 17:25] LABS: Glucose, Whole Blood 211 mg/dL (60-115)
[2024-06-26 19:42] LABS: Glucose, Whole Blood 227 mg/dL (60-115)
[2024-06-26] MEDS: Acetaminophen 325 MG TABLET 650 MG PO (20:41)
[2024-06-27] MEDS: 0.9 % Sodium Chloride Flush 3 ML SYRINGE IVFLUSH ×3 (01:15→20:27)
[2024-06-27] MEDS: Piperacillin Sodium/Tazobactam 3.375 GM in 0.9 % Sodium Chloride 50 ML IV ×4 (02:16→20:25)
[2024-06-27 03:09] VITALS: BP 130/88; PULSE 104; RESP 18; TEMP 36.4; O2SAT 97
[2024-06-27] MEDS: vancomycin HCL 1,250 MG in 0.9 % Sodium Chloride 250 ML 166.67 MG IV ×2 (07:15→20:58)
[2024-06-27 07:32] LABS: Creatinine Clr Calc Pharmacy 85.1; Estimated Glomerular Filt Rate > 60
[2024-06-27 07:49] LABS: Glucose, Whole Blood 213 mg/dL (60-115)
[2024-06-27 08:00] VITALS: BP 138/89; PULSE 92; RESP 18; TEMP 36.9; O2SAT 97
--- NOTE | 2024-06-27 08:28 | HE.PHANOTE ---
VANCO DOSE ADJUSTMENT BASED ON SCR DOSE CONTINUED AT 1250 Q 12H. NEXT LEVEL 06/28 @ 0600
[2024-06-27] MEDS: glipiZIDE XL 5 MG TAB.ER.24 PO (09:14)
--- NOTE | 2024-06-27 09:19 | MHC.CM.PN ---
Patient lives in an apartment alone. Functionally independent. Denies use of DME or services. PCP Saravanan Valle MD Reports he has an HCP naming his mother, Concha, as HCA. Copy requested. DP: Goal is home self care. Friend to transport. CM will continue to follow.
--- NOTE | 2024-06-27 10:26 | PM.CNOR ---
History of Present Illness HPI Consult date: 06/27/24 Chief complaint: Left 3rd finger tenosynovitis/cellulitis Narrative: 53 yo male right-hand dominant here with complaints of 1 week of left 3rd digit swelling, redness, pain and difficulty with movement. Reports he sustained a laceration to the back of the middle finger and then mixed cement. Denies any fevers, chills, numbness, tingling of the extremities. Patient was admitted to the medicine service with orthopedic consult for further evaluation and treatment. Of note patient reports he has history of diabetes but is noncompliant with medication. 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 Cognitive needs: No Hearing needs: No Vision needs: No Meds Allergies Allergy/AdvReac Type Severity Reaction Status Date / Time No Known Allergies Allergy Verified 06/26/24 10:41 Active Medications: Current Medications Acetaminophen (Acetaminophen 325 Mg Tablet) 650 mg PO Q6H PRN PRN Reason: Pain, Mild (Pain Scale 1-3), fever or headache Last Admin: 06/26/24 20:41 Dose: 650 mg Calcium Carbonate (Calcium Carbonate 750 Mg Tab.Chew) 750 mg PO Q4H PRN PRN Reason: Heartburn Enoxaparin Sodium (Enoxaparin Sodium 40 Mg/0.4 Ml Syringe) 40 mg SUBCUT Q24H [facility] Last Admin: 06/26/24 16:18 Dose: Not Given Fenofibrate (Fenofibrate 160 Mg Tablet) 160 mg PO DAILY [facility] Last Admin: 06/27/24 09:18 Dose: Not Given Glipizide (Glipizide Xl 5 Mg Tab.Er.24) 5 mg PO DAILY [facility] Last Admin: 06/27/24 09:14 Dose: 5 mg Piperacillin Sod/Tazobactam (Sod 3.375 gm/ Sodium Chloride) 50 mls @ 100 mls/hr IV Q6H [facility] Last Infusion: 06/27/24 09:54 Dose: Infused Vancomycin HCl 1,250 mg/ (Sodium Chloride) 250 mls @ 166.667 mls/hr IV Q12H [facility] Last Infusion: 06/27/24 09:02 Dose: Infused Magnesium Hydroxide (Milk Of Magnesia 30 Ml Oral.Susp) 30 ml PO DAILY PRN PRN Reason: Constipation Melatonin (Melatonin 3 Mg Tablet) 6 mg PO BEDTIME PRN PRN Reason: Insomnia Metoprolol Succinate (Metoprolol Succinate Er 12.5 Mg Halftab.Er.24h) 12.5 mg PO DAILY [facility]; Protocol Last Admin: 06/27/24 09:18 Dose: Not Given Ondansetron HCl (Ondansetron Hcl 4 Mg/2 Ml Vial) 4 mg IVPUSH Q8H PRN PRN Reason: Nausea and Vomiting Oxycodone HCl (Oxycodone Hcl Immed Release 5 Mg Tablet) 5 mg PO Q6H PRN PRN Reason: Pain, Moderate(Pain Scale 4-6) Last Admin: 06/26/24 15:57 Dose: 5 mg Pharmacy Consult (Consult Rx Vancomycin Dosing) 1 each MISCELLANE DAILY PRN PRN Reason: Consult order Sodium Chloride (0.9 % Sodium Chloride Flush 3 Ml Syringe) 3 ml IVFLUSH QSHIFT [facility] Last Admin: 06/27/24 07:19 Dose: 3 ml Home Medications ?Medication ?Instructions ?Recorded ?Confirmed ?Last Taken ?Type blood pressure test kit-large #1 ea 03/06/22 03/22/24 Unknown History Physical Exam Vital Signs: Vital Signs: Last Vital Signs Temp 98.4 F 06/27/24 08:00 Pulse 92 06/27/24 08:00 Resp 18 06/27/24 08:00 BP 138/89 06/27/24 08:00 Pulse Ox 97 06/27/24 08:00 O2 Del Method Room Air 06/27/24 08:00 BMI result Body Mass Index 35.1 Extrem: Other: Left hand middle finger cellulitic, quarter sized area of fluctuance over the PID, no active drainage. No tenderness to palpation over the flexor tendons. Sensation intact. Capillary refill brisk. Results Labs 06/26/24 11:24 06/27/24 06:41 Labs: Abnormal lab results 06/26/24 06/26/24 06/26/24 Range/Units 11:24 16:14 17:22 Plt Count 142 L (160-400) X10*3/uL Immature Gran % (Auto) 0.5 H (0.0-0.4) % Neut % (Auto) 73.9 H (45-73) % Lymph % (Auto) 16.3 L (20-40) % Abs Immat Gran (auto) 0.04 H (0.00-0.03) X10*3/uL POC Glucose 254 H 211 H (60-115) mg/dL Random Glucose 241 H (60-115) mg/dL Total Bilirubin 1.5 H (0.0-1.0) mg/dL C-Reactive Protein 1.41 H (< or = 0.50) mg/dL 06/26/24 06/27/24 Range/Units 19:21 07:35 Plt Count (160-400) X10*3/uL Immature Gran % (Auto) (0.0-0.4) % Neut % (Auto) (45-73) % Lymph % (Auto) (20-40) % Abs Immat Gran (auto) (0.00-0.03) X10*3/uL POC Glucose 227 H 213 H (60-115) mg/dL Random Glucose (60-115) mg/dL Total Bilirubin (0.0-1.0) mg/dL C-Reactive Protein (< or = 0.50) mg/dL H & H 06/26/24 Range/Units 11:24 Hgb 15.4 (14.0-18.0) g/dl Hct 43.5 (42.0-52.0) % All other labs normal. Assessment and Plan (1) Type 2 diabetes mellitus: Status: Acute (2) Cellulitis of left hand: Status: Acute (3) Abscess of left middle finger: Status: Acute Plan Continue IV abx Continue warm compress/soaks NPO after midnight Plan for I&D tomorrow in the OR Procedures Date of Service Date of Service: 06/27/24
--- NOTE | 2024-06-27 11:35 | HO.PM.IMPN ---
Subjective Subjective Date of Service: 06/27/24 Interval History: Feeling better, persistent swelling left 3rd finger, redness improving, denies fever, no chills, blood sugars elevated refusing insulin agreed to take oral hypoglycemic. Review of Systems All other system reviewed and are negative Physical Exam Vital Signs: Vital Signs: Last Vital Signs Temp 98.4 F 06/27/24 08:00 Pulse 92 06/27/24 08:00 Resp 18 06/27/24 08:00 BP 138/89 06/27/24 08:00 Pulse Ox 97 06/27/24 08:00 O2 Del Method Room Air 06/27/24 08:00 BMI result Body Mass Index 35.1 Const: Other: General resting co mfortably in no ac isael distress. An icteric sclera. Ne ck supple no JVD. CVS regular rate rhythm, Respirator y lungs clear to a uscultation, no re spiratory distress , no wheeze, no rh onchi. Gastrointes tinal abdomen soft , non tender, mery l sounds audible, no guarding , no r igidity. Extremiti es no LE edema. Ne uro non focal Ski n no rash Psych ap propriate affect L eft hand 3rd finge r PIP swollen , wa rm ,hyperemic, no drainage from the cut, positive fluc tuation, redness d orsum of hand impr yun, pain with ex tension Objective Data Active Medications Acetaminophen (Acetaminophen 325 Mg Tablet) 650 mg PO Q6H PRN PRN Reason: Pain, Mild (Pain Scale 1-3), fever or headache Last Admin: 06/26/24 20:41 Dose: 650 mg Documented By: MOSHE Calcium Carbonate (Calcium Carbonate 750 Mg Tab.Chew) 750 mg PO Q4H PRN PRN Reason: Heartburn Enoxaparin Sodium (Enoxaparin Sodium 40 Mg/0.4 Ml Syringe) 40 mg SUBCUT Q24H [facility] Last Admin: 06/26/24 16:18 Dose: Not Given Documented By: CRISTO Non-Admin Reason: Patient Refused Fenofibrate (Fenofibrate 160 Mg Tablet) 160 mg PO DAILY [facility] Last Admin: 06/27/24 09:18 Dose: Not Given Documented By: DAVID Non-Admin Reason: Patient Refused Glipizide (Glipizide Xl 5 Mg Tab.Er.24) 5 mg PO DAILY [facility]CLUD[facility] Last Admin: 06/27/24 09:14 Dose: 5 mg Documented By: DAVID Piperacillin Sod/Tazobactam (Sod 3.375 gm/ Sodium Chloride) 50 mls @ 100 mls/hr IV Q6H [facility] Last Infusion: 06/27/24 09:54 Dose: Infused Documented By: DAVID Vancomycin HCl 1,250 mg/ (Sodium Chloride) 250 mls @ 166.667 mls/hr IV Q12H [facility] Last Infusion: 06/27/24 09:02 Dose: Infused Documented By: DAVID Magnesium Hydroxide (Milk Of Magnesia 30 Ml Oral.Susp) 30 ml PO DAILY PRN PRN Reason: Constipation Melatonin (Melatonin 3 Mg Tablet) 6 mg PO BEDTIME PRN PRN Reason: Insomnia Metoprolol Succinate (Metoprolol Succinate Er 12.5 Mg Halftab.Er.24h) 12.5 mg PO DAILY [facility]; Protocol Last Admin: 06/27/24 09:18 Dose: Not Given Documented By: DAVID Non-Admin Reason: Patient Refused Ondansetron HCl (Ondansetron Hcl 4 Mg/2 Ml Vial) 4 mg IVPUSH Q8H PRN PRN Reason: Nausea and Vomiting Oxycodone HCl (Oxycodone Hcl Immed Release 5 Mg Tablet) 5 mg PO Q6H PRN PRN Reason: Pain, Moderate(Pain Scale 4-6) Last Admin: 06/26/24 15:57 Dose: 5 mg Documented By: CRISTO Pharmacy Consult (Consult Rx Vancomycin Dosing) 1 each MISCELLANE DAILY PRN PRN Reason: Consult order Sodium Chloride (0.9 % Sodium Chloride Flush 3 Ml Syringe) 3 ml IVFLUSH QSHIFT [facility]CLUD[facility] Last Admin: 06/27/24 07:19 Dose: 3 ml Documented By: DAVID Labs 06/26/24 11:24 06/27/24 06:41 Labs: Laboratory Results - last 24 hr 06/26/24 06/26/24 06/26/24 11:24 13:33 16:14 MCV 87.5 MCH 31.0 MCHC 35.4 RDW 12.4 Plt Count 142 L MPV 11.2 Immature Gran % (Auto) 0.5 H Neut % (Auto) 73.9 H Lymph % (Auto) 16.3 L [place] % (Auto) 8.2 Eos % (Auto) 0.9 Baso % (Auto) 0.2 Lymph # (Auto) 1.4 [place] # (Auto) 0.7 Eos # (Auto) 0.1 Baso # (Auto) 0.0 Abs Immat Gran (auto) 0.04 H Absolute Neuts (auto) 6.3 Absolute Nucleated RBC 0.000 Nucleated RBC % (auto) 0.0 ESR 13 Anion Gap 12 Estim Creat Clear Calc 86.9 Estimated GFR > 60 POC Glucose 254 H Random Glucose 241 H Lactic Acid 1.1 Calcium 9.7 Total Bilirubin 1.5 H AST 29 ALT 24 Alkaline Phosphatase 83 C-Reactive Protein 1.41 H Total Protein 6.9 Albumin 4.0 06/26/24 06/26/24 06/27/24 17:22 19:21 06:41 MCV MCH MCHC RDW Plt Count MPV Immature Gran % (Auto) Neut % (Auto) Lymph % (Auto) [place] % (Auto) Eos % (Auto) Baso % (Auto) Lymph # (Auto) [place] # (Auto) Eos # (Auto) Baso # (Auto) Abs Immat Gran (auto) Absolute Neuts (auto) Absolute Nucleated RBC Nucleated RBC % (auto) ESR Anion Gap Estim Creat Clear Calc 85.1 Estimated GFR > 60 POC Glucose 211 H 227 H Random Glucose Lactic Acid Calcium Total Bilirubin AST ALT Alkaline Phosphatase C-Reactive Protein Total Protein Albumin 06/27/24 07:35 MCV MCH MCHC RDW Plt Count MPV Immature Gran % (Auto) Neut % (Auto) Lymph % (Auto) [place] % (Auto) Eos % (Auto) Baso % (Auto) Lymph # (Auto) [place] # (Auto) Eos # (Auto) Baso # (Auto) Abs Immat Gran (auto) Absolute Neuts (auto) Absolute Nucleated RBC Nucleated RBC % (auto) ESR Anion Gap Estim Creat Clear Calc Estimated GFR POC Glucose 213 H Random Glucose Lactic Acid Calcium Total Bilirubin AST ALT Alkaline Phosphatase C-Reactive Protein Total Protein Albumin Assessment and Plan (1) Abscess of left middle finger: Status: Acute (2) Cellulitis of left hand: Status: Acute Plan 53-year-old gentleman with past medical history significant for hypertension, type 2 diabetes mellitus, hyperlipidemia in class 2 obesity presented with left 3rd fingers swelling redness and limited range of motion likely tenosynovitis/cellulitis, x-ray showed no collection of fluid. Left 3rd finger PIP /hand cellulitis and abscess Improving, redness dorsum of hand improved No sepsis Continue IV vanco/IV Zosyn started on 06/26/warm compresses/analgesics Seen by ortho they recommend NPO/I and D tomorrow Diabetes mellitus type 2 with hyperglycemia Refusing insulin, since feels once he will be on insulin his body will get use to it. Monitor point of care and on glipizide, hold metformin Hemoglobin A1c 9.1 in 03/24 Discuss diabetic diet Hyperlipidemia continue fenofibrate Hypertension continue metoprolol and follow BP Class 2 obesity recommend low-calorie diet and exercise. Full code Lovenox In my clinical judgment patient requires continued inpatient hospitalization for treatment of left 3rd finger cellulitis requiring IV antibiotic and expert consultation. Quality Stroke Does the patient have a stroke diagnosis?: No VTE Prior VTE?: No VTE Risk Level:: Medical - moderate - high VTE Device Contraindication: Treatment Not Indicated VTE Drug Contraindication: N/A - Med Ordered
[2024-06-27 11:57] LABS: Glucose, Whole Blood 184 mg/dL (60-115)
[2024-06-27 15:50] VITALS: BP 133/85; PULSE 88; RESP 18; TEMP 37.1; O2SAT 95
[2024-06-27 16:13] LABS: Glucose, Whole Blood 178 mg/dL (60-115)
[2024-06-27] MEDS: Acetaminophen 325 MG TABLET 650 MG PO (19:33)
[2024-06-27 19:50] VITALS: BP 137/84; PULSE 98; RESP 20; TEMP 36.8; O2SAT 97
[2024-06-27 20:20] LABS: Glucose, Whole Blood 228 mg/dL (60-115)
[2024-06-28] VITALS (12 sets, daily range): BP systolic 129–178; BP diastolic 78–104; PULSE 83–113; RESP 16–18; TEMP 36–37.2; O2SAT 94–98
[2024-06-28] MEDS: Piperacillin Sodium/Tazobactam 3.375 GM in 0.9 % Sodium Chloride 50 ML IV (02:54)
[2024-06-28 06:50] LABS: Vancomycin Random 9.2 mcg/mL (15-20)
[2024-06-28 06:51] LABS: Creatinine Clr Calc Pharmacy 91.7; Estimated Glomerular Filt Rate > 60
--- NOTE | 2024-06-28 07:17 | HE.PHANOTE ---
[facility] Patients level came back this morning at 9.2. Will increase dose to 1500 mg Q12H. Next level to be drawn 06/29 @0600. Predicted AUC 472
[2024-06-28 07:44] LABS: Glucose, Whole Blood 267 mg/dL (60-115)
[2024-06-28] MEDS: 0.9 % Sodium Chloride Flush 3 ML SYRINGE IVFLUSH ×3 (08:32→23:18)
[2024-06-28] MEDS: vancomycin HCL 1,500 MG in 0.9 % Sodium Chloride 500 ML 333.33 MG IV (08:38)
--- NOTE | 2024-06-28 09:38 | PC.NURSE ---
Pt. alert and oriented times 4, refused all his PO medicine this am, stating he didn't need them, he also stated that he believed he had enough antibiotics, so he doesn't want anymore. notified, pt. education provided about infection and plan of treatment. Pt. stated that he understood.
--- NOTE | 2024-06-28 10:16 | MHC.SHP ---
Pre-Procedural Eval Section A - 24 Hr Update-Section A only Date of Service: 06/28/24 The patient is an INPATIENT: No Changes since office visit: No Cold of Flu in the past 2 weeks, No New Medical Problems, No Changes in Medication and No Patient answered all questions The patient has been examined within 24 hours of the surgical procedure. The History & Physical has been completed within 30 days and I have reviewed it.: Yes Section B - Complete if H&P > 30 days Chief Complaint: Left 3rd finger tenosynovitis/cellulitis Allergies: Allergies Allergy/AdvReac Type Severity Reaction Status Date / Time No Known Allergies Allergy Verified 06/26/24 10:41 Exam Exam Comment: History: He evidently sustained a laceration to the dorsal aspect of his left middle finger little over a week ago. He said it was healing well until he got it dirty while mixing cement for a project. Within a couple of days of getting some dirty cement water on the open wound he began to develop increasing redness swelling and pain. Physical exam: Patient was alert oriented and in no acute distress. He has visible erythema and swelling centered about the dorsal aspect of the left middle finger PIP joint. Good active flexion and extension at the MCP joint. No tenderness along the flexor tendon sheath. Most tender over the dorsal aspect of the PIP joint and there appears to be a focal area of swelling where there is likely an abscess over the dorsal aspect of the PIP joint. There is a healing oblique laceration just distal to the PIP joint. No pain with axial loading of the PIP joint. Sensation intact cap refill brisk Plan Diagnosis/Plan: Unchanged I have reviewed the history and physical and performed a pertinent physical examination on my patient. No changes have occurred unless specified. Assessment and plan: 1. Left middle finger cellulitis and abscess over the dorsal aspect of the PIP joint I educated the patient about this condition We discussed operative and non operative treatment options and I am recommending operative I and D The risks and benefits of operative treatment were discussed with the patient and the patient wishes to proceed with surgery. These risks include, but are not limited to risk of damage to blood vessels, nerves, tendons, infection, recurrence, incomplete relief of preoperative symptoms, persistent pain, possible need for further surgery and the risks associated with regional blocks and anesthesia. The plan is to take the patient to the operating room today for the following procedures: 1. Left middle finger I and D 2. [ ] All of the preoperative paperwork including the consent was filled out today. All the patient's questions were answered. Time Spent With Patient Time: Total time managing care of this patient today ____ minutes.
--- NOTE | 2024-06-28 10:18 | P.OP_ITS ---
Operative Note Operative Note Date of Service: 06/28/24 Narrative: Operative Note Narrative: Preop diagnosis: 1. Left middle finger dorsal abscess Postop diagnosis: Same Procedure: 1. Left middle finger I and D Surgeon: Charlotte Ramos MD Quality Assurance Tester: None Anesthesia: General Anesthesia Findings: Abscess dorsal to the PIP joint, with creamy yellow purulence extending down to the original laceration. Implants: None Tourniquet time: 0 minutes EBL: 5.0 ml Specimen: Cultures taken x2 Drains: None Complications: None Disposition: Brought to the recovery room in stable condition Plan: Admit back to floor to continue IV antibiotics. Dressing change in the next 1-2 days, and before discharge. Check cultures and adjust antibiotics accordingly. Consider oral antibiotics to also cover MRSA. Hospitalist to help with diabetes management please. Close follow-up within a few days of discharge for wound check, and to again check cultures. Indications: The patient is a 53 year old man with diabetes and an injury over the dorsal aspect of his left middle finger that resulted in cellulitis and an abscess. . The risks and benefits of operative treatment, including but not limited to risk of damage to blood vessels, nerves, tendons, infection, recurrence, persistent pain or numbness, incomplete resolution of preoperative symptoms, or need for further surgery were discussed with the patient and they wished to proceed with surgery. Procedure: Once consent was obtained patient was brought back to the operating suite and placed in the operating table in a supine position. Anesthesia was administered by the anesthesia team. A tourniquet was applied to the proximal aspect of the left upper extremity and the limb was prepped and draped in a standard surgical fashion. The tourniquet was not inflated. I made a 1.5 cm dorsal longitudinal incision centered over the dorsal aspect of the middle finger PIP joint. The incision was made through the skin the subcutaneous tissues. We encountered creamy yellow purulence and cultures were taken. I then placed some tenotomy scissors in the original wound just distal to this, and the abscess cavity extended down to this wound. I then copiously irrigated between these 2 wounds with normal saline. The wounds were debrided of devitalized tissue using tenotomy scissors and a small rongeur. The wounds were again irrigated with normal saline. Hemostasis obtained with a brief period of local pressure. The wound was copiously irrigated with normal saline. The skin edges were loosely reapproximated with 5-0 nylon suture, allowing for drainage. The wound was infiltrated with some 1% lidocaine with epinephrine for postop pain control and a sterile dressing was applied. The patient appears to have tolerated the procedure well and with no complications. All digits were well vascularized conclusion of the case.
[2024-06-28 10:25] LABS: Glucose, Whole Blood 221 mg/dL (60-115)
[2024-06-28] MEDS: Lactated Ringers 1,000 ML 80 ML IVCONT (11:01)
--- NOTE | 2024-06-28 11:47 | P.CONAN_ITS ---
HPI - Anesthesia Eval Consult details Narrative: I&D left middle finger PMFSH Active Problems Active Problems: All Active Problems Abscess of left middle finger (Acute) Cellulitis of left hand (Acute) Tenosynovitis (Acute) Mixed hyperlipidemia (Acute) Insect bite (Acute) Low HDL (under 40) (Acute) GERD (gastroesophageal reflux disease) (Acute) Elevated liver enzymes (Acute) Right shoulder pain (Acute) Hypertension (Acute) Screening for prostate cancer (Acute) Screening for colon cancer (Acute) Adult general medical exam (Acute) Tachycardia (Acute) Cough (Acute) Laboratory exam ordered as part of routine general medical examination (Acute) Foreign body finger (Acute) Hyperlipemia (Acute) Type 2 diabetes mellitus (Acute) Past Medical History Medical History (Updated 06/28/24 @ 11:07 by Barbara Gonsales RN) Hypertension Type 2 diabetes mellitus Perineal fissure Hyperlipemia Family History Family History Mother High blood pressure Father Diabetes Family history of problems with anesthesia: No Surgical History Surgical History (Updated 06/28/24 @ 11:08 by Barbara Gonsales RN) Hx of arthroscopic knee surgery History of Problems with Anesthesia: No Social History Social History Household Members: None Housing: House Are you a primary child care director to a significant other at home: No Do you presently have visiting nurse or other home services: No Patient Tobacco Use Status: Never used Tobacco e-Cigarette/Vaping Use: Never Used service: No Current occupational status: employed 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, 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 Cognitive needs: No Hearing needs: No Vision needs: No Meds Allergies Allergy/AdvReac Type Severity Reaction Status Date / Time No Known Allergies Allergy Verified 06/26/24 10:41 Active Medications: Current Medications Acetaminophen (Acetaminophen 325 Mg Tablet) 650 mg PO Q6H PRN PRN Reason: Pain, Mild (Pain Scale 1-3), fever or headache Last Admin: 06/27/24 19:33 Dose: 650 mg Calcium Carbonate (Calcium Carbonate 750 Mg Tab.Chew) 750 mg PO Q4H PRN PRN Reason: Heartburn Enoxaparin Sodium (Enoxaparin Sodium 40 Mg/0.4 Ml Syringe) 40 mg SUBCUT Q24H [facility] Last Admin: 06/27/24 14:51 Dose: Not Given Fenofibrate (Fenofibrate 160 Mg Tablet) 160 mg PO DAILY [facility] Last Admin: 06/28/24 08:45 Dose: Not Given Glipizide (Glipizide Xl 10 Mg Tab.Er.24) 10 mg PO DAILY [facility] Last Admin: 06/28/24 08:33 Dose: Not Given Piperacillin Sod/Tazobactam (Sod 3.375 gm/ Sodium Chloride) 50 mls @ 100 mls/hr IV Q6H [facility] Last Infusion: 06/28/24 03:24 Dose: Infused Vancomycin HCl 1,500 mg/ (Sodium Chloride) 500 mls @ 333.333 mls/hr IV Q12H [facility] Last Infusion: 06/28/24 10:18 Dose: Infused Lactated Ringer's (Lr) 1,000 mls @ 80 mls/hr IVCONT .[id number] [facility] Last Admin: 06/28/24 11:01 Dose: 80 mls/hr Magnesium Hydroxide (Milk Of Magnesia 30 Ml Oral.Susp) 30 ml PO DAILY PRN PRN Reason: Constipation Melatonin (Melatonin 3 Mg Tablet) 6 mg PO BEDTIME PRN PRN Reason: Insomnia Metoprolol Succinate (Metoprolol Succinate Er 12.5 Mg Halftab.Er.24h) 12.5 mg PO DAILY [facility]; Protocol Last Admin: 06/28/24 08:45 Dose: Not Given Ondansetron HCl (Ondansetron Hcl 4 Mg/2 Ml Vial) 4 mg IVPUSH Q8H PRN PRN Reason: Nausea and Vomiting Oxycodone HCl (Oxycodone Hcl Immed Release 5 Mg Tablet) 5 mg PO Q6H PRN PRN Reason: Pain, Moderate(Pain Scale 4-6) Last Admin: 06/26/24 15:57 Dose: 5 mg Pharmacy Consult (Consult Rx Vancomycin Dosing) 1 each MISCELLANE DAILY PRN PRN Reason: Consult order Sodium Chloride (0.9 % Sodium Chloride Flush 3 Ml Syringe) 3 ml IVFLUSH QSHIFT [facility] Last Admin: 06/28/24 08:32 Dose: 3 ml Home Medications ?Medication ?Instructions ?Recorded ?Confirmed ?Last Taken ?Type blood pressure test kit-large #1 ea 03/06/22 03/22/24 Unknown History Exam Height,Weight and Vital Signs: Height 5 ft 2 in Weight 87 kg Last Vital Signs Temp 98.9 F 06/28/24 10:30 Pulse 96 06/28/24 10:48 Resp 18 06/28/24 10:30 BP 162/101 H 06/28/24 10:48 Pulse Ox 98 06/28/24 10:30 O2 Del Method Room Air 06/28/24 10:30 Pertinent Lab Results Pertinent Lab Results: Laboratory Tests 06/26/24 06/26/24 06/26/24 11:24 13:33 16:14 WBC 8.6 RBC 4.97 Hgb 15.4 Hct 43.5 MCV 87.5 MCH 31.0 MCHC 35.4 RDW 12.4 Plt Count 142 L MPV 11.2 Immature Gran % (Auto) 0.5 H Neut % (Auto) 73.9 H Lymph % (Auto) 16.3 L [place] % (Auto) 8.2 Eos % (Auto) 0.9 Baso % (Auto) 0.2 Lymph # (Auto) 1.4 [place] # (Auto) 0.7 Eos # (Auto) 0.1 Baso # (Auto) 0.0 Abs Immat Gran (auto) 0.04 H Absolute Neuts (auto) 6.3 Absolute Nucleated RBC 0.000 Nucleated RBC % (auto) 0.0 ESR 13 Hold Purple Top Sodium 135 Potassium 3.9 Chloride 104 Carbon Dioxide 23 Anion Gap 12 BUN 10 Creatinine 0.95 Estim Creat Clear Calc 86.9 Estimated GFR > 60 POC Glucose 254 H Random Glucose 241 H Lactic Acid 1.1 Calcium 9.7 Total Bilirubin 1.5 H AST 29 ALT 24 Alkaline Phosphatase 83 C-Reactive Protein 1.41 H Total Protein 6.9 Albumin 4.0 Random Vancomycin 06/26/24 06/26/24 06/27/24 17:22 19:21 06:41 WBC RBC Hgb Hct MCV MCH MCHC RDW Plt Count MPV Immature Gran % (Auto) Neut % (Auto) Lymph % (Auto) [place] % (Auto) Eos % (Auto) Baso % (Auto) Lymph # (Auto) [place] # (Auto) Eos # (Auto) Baso # (Auto) Abs Immat Gran (auto) Absolute Neuts (auto) Absolute Nucleated RBC Nucleated RBC % (auto) ESR Hold Purple Top Sodium Potassium Chloride Carbon Dioxide Anion Gap BUN Creatinine 0.97 Estim Creat Clear Calc 85.1 Estimated GFR > 60 POC Glucose 211 H 227 H Random Glucose Lactic Acid Calcium Total Bilirubin AST ALT Alkaline Phosphatase C-Reactive Protein Total Protein Albumin Random Vancomycin 06/27/24 06/27/24 06/27/24 07:35 11:47 16:09 WBC RBC Hgb Hct MCV MCH MCHC RDW Plt Count MPV Immature Gran % (Auto) Neut % (Auto) Lymph % (Auto) [place] % (Auto) Eos % (Auto) Baso % (Auto) Lymph # (Auto) [place] # (Auto) Eos # (Auto) Baso # (Auto) Abs Immat Gran (auto) Absolute Neuts (auto) Absolute Nucleated RBC Nucleated RBC % (auto) ESR Hold Purple Top Sodium Potassium Chloride Carbon Dioxide Anion Gap BUN Creatinine Estim Creat Clear Calc Estimated GFR POC Glucose 213 H 184 H 178 H Random Glucose Lactic Acid Calcium Total Bilirubin AST ALT Alkaline Phosphatase C-Reactive Protein Total Protein Albumin Random Vancomycin 06/27/24 06/28/24 06/28/24 20:14 06:05 07:38 WBC RBC Hgb Hct MCV MCH MCHC RDW Plt Count MPV Immature Gran % (Auto) Neut % (Auto) Lymph % (Auto) [place] % (Auto) Eos % (Auto) Baso % (Auto) Lymph # (Auto) [place] # (Auto) Eos # (Auto) Baso # (Auto) Abs Immat Gran (auto) Absolute Neuts (auto) Absolute Nucleated RBC Nucleated RBC % (auto) ESR Hold Purple Top SEE NOTE Sodium Potassium Chloride Carbon Dioxide Anion Gap BUN Creatinine 0.90 Estim Creat Clear Calc 91.7 Estimated GFR > 60 POC Glucose 228 H 267 H Random Glucose Lactic Acid Calcium Total Bilirubin AST ALT Alkaline Phosphatase C-Reactive Protein Total Protein Albumin Random Vancomycin 9.2 L 06/28/24 10:19 WBC RBC Hgb Hct MCV MCH MCHC RDW Plt Count MPV Immature Gran % (Auto) Neut % (Auto) Lymph % (Auto) [place] % (Auto) Eos % (Auto) Baso % (Auto) Lymph # (Auto) [place] # (Auto) Eos # (Auto) Baso # (Auto) Abs Immat Gran (auto) Absolute Neuts (auto) Absolute Nucleated RBC Nucleated RBC % (auto) ESR Hold Purple Top Sodium Potassium Chloride Carbon Dioxide Anion Gap BUN Creatinine Estim Creat Clear Calc Estimated GFR POC Glucose 221 H Random Glucose Lactic Acid Calcium Total Bilirubin AST ALT Alkaline Phosphatase C-Reactive Protein Total Protein Albumin Random Vancomycin Airway Mallampati Class: II TM Dist: <=3cm Neck ROM: Full Loose/Missing/Broken Teeth: Yes, Upper and Lower Heart: ok Lungs: ok Assessment and Plan Final Anesthetic Review Family History of Problems with Anesthesia: No History of Problems with Anesthesia: No NPO: Yes ASA Class: II Final Preanesthetic Review: No Changes in Pt Med Stat, Meds/Allgs Chart Reviewed, Consent Obtained/Reviewed and Anes Risks/Benef Reviewed Patient Risk: Intermediate Procedure Risk: Low Anesthetic Plan Anesthetic Plan: GA and Agree w/ Assess. and Plan Disposition: Standard PACU
--- NOTE | 2024-06-28 12:00 | MHC.CM.PN ---
EMR reviewed and per MD rounds, pt is not medically cleared for discharge today due to management of left 3rd finger cellulitis, with surgical I&D today.
[2024-06-28] MEDS: glipiZIDE XL 10 MG TAB.ER.24 PO (14:17)
[2024-06-28] MEDS: Sulfamethox/Trimeth 800/160 TABLET 1 TAB PO (14:52)
--- NOTE | 2024-06-28 15:08 | HO.WOUND ---
Wound Consult: deferred to Surgery team 53yr old? [place] [facility] [place] See progress notes and H&P for detailed history.? Wound consult placed for Left 3rd toe wound. Chart review reveals patient was taken to OR today by general surgery team will defer to General Surgery team for topical orders. Will follow along with the chart to see if topical orders are needed in the future. ?
--- NOTE | 2024-06-28 15:29 | HO.PM.IMPN ---
Subjective Subjective Date of Service: 06/28/24 Interval History: Good pain control , persistent swelling and redness left 3rd finger, denies fever, no chills NPO for I and D left 3rd finger abscess, blood sugars in 200s refusing insulin. Review of Systems All other system reviewed and are negative. Physical Exam Vital Signs: Vital Signs: Last Vital Signs Temp 97.5 F 06/28/24 14:10 Pulse 94 06/28/24 14:10 Resp 16 06/28/24 14:10 BP 140/88 H 06/28/24 14:10 Pulse Ox 97 06/28/24 14:10 O2 Del Method Room Air 06/28/24 14:10 BMI result Body Mass Index 35.1 Const: Other: General resting co mfortably in no ac isael distress. An icteric sclera. Ne ck supple no JVD. CVS regular rate rhythm, Respirator y lungs clear to a uscultation, no re spiratory distress , no wheeze, no rh onchi. Gastrointes tinal abdomen soft , non tender, mery l sounds audible, no guarding , no r igidity. Extremiti es no LE edema. Ne uro non focal Ski n no rash Psych ap propriate affect L eft hand 3rd finge r dressing in plac e Objective Data Active Medications Acetaminophen (Acetaminophen 325 Mg Tablet) 650 mg PO Q6H PRN PRN Reason: Pain, Mild (Pain Scale 1-3), fever or headache Last Admin: 06/27/24 19:33 Dose: 650 mg Documented By: AMIE Acetaminophen (Acetaminophen 325 Mg Tablet) 975 mg PO ONCE PRN PRN Reason: Pain, Mild (Pain Scale 1-3) Stop: 06/28/24 18:24 Calcium Carbonate (Calcium Carbonate 750 Mg Tab.Chew) 750 mg PO Q4H PRN PRN Reason: Heartburn Enoxaparin Sodium (Enoxaparin Sodium 40 Mg/0.4 Ml Syringe) 40 mg SUBCUT Q24H [facility] Last Admin: 06/28/24 14:55 Dose: Not Given Documented By: NELI Non-Admin Reason: Patient Refused Fenofibrate (Fenofibrate 160 Mg Tablet) 160 mg PO DAILY [facility] Last Admin: 06/28/24 08:45 Dose: Not Given Documented By: NELI Non-Admin Reason: Patient Refused Fentanyl (Fentanyl Citrate/Pf 100 Mcg/2 Ml Vial) 50 mcg IVPUSH Q5M PRN PRN Reason: Pain, Moderate to Severe (Pain Scale 4-10) Stop: 06/28/24 18:24 Glipizide (Glipizide Xl 10 Mg Tab.Er.24) 10 mg PO DAILY [facility] Last Admin: 06/28/24 14:17 Dose: 10 mg Documented By: ALEXIS Piperacillin Sod/Tazobactam (Sod 3.375 gm/ Sodium Chloride) 50 mls @ 100 mls/hr IV Q6H [facility] Last Admin: 06/28/24 14:55 Dose: Not Given Documented By: NELI Non-Admin Reason: Patient Refused Vancomycin HCl 1,500 mg/ (Sodium Chloride) 500 mls @ 333.333 mls/hr IV Q12H [facility] Last Infusion: 06/28/24 10:18 Dose: Infused Documented By: NELI Lactated Ringer's (Lr) 1,000 mls @ 80 mls/hr IVCONT .[id number] [facility] Last Admin: 06/28/24 11:01 Dose: 80 mls/hr Documented By: RUY Magnesium Hydroxide (Milk Of Magnesia 30 Ml Oral.Susp) 30 ml PO DAILY PRN PRN Reason: Constipation Melatonin (Melatonin 3 Mg Tablet) 6 mg PO BEDTIME PRN PRN Reason: Insomnia Metoprolol Succinate (Metoprolol Succinate Er 12.5 Mg Halftab.Er.24h) 12.5 mg PO DAILY [facility]; Protocol Last Admin: 06/28/24 08:45 Dose: Not Given Documented By: NELI Non-Admin Reason: Patient Refused Naloxone HCl (Naloxone Hcl 0.4 Mg/Ml Vial) 0.04 mg IVPUSH Q5M PRN PRN Reason: Excessive sedation or RR < 8 Ondansetron HCl (Ondansetron Hcl 4 Mg/2 Ml Vial) 4 mg IVPUSH Q8H PRN PRN Reason: Nausea and Vomiting Ondansetron HCl (Ondansetron Hcl 4 Mg/2 Ml Vial) 4 mg IVPUSH ONCE PRN PRN Reason: Nausea and Vomiting Stop: 06/28/24 18:24 Oxycodone HCl (Oxycodone Hcl Immed Release 5 Mg Tablet) 5 mg PO Q6H PRN PRN Reason: Pain, Moderate(Pain Scale 4-6) Last Admin: 06/26/24 15:57 Dose: 5 mg Documented By: CRISTO Oxycodone HCl (Oxycodone Hcl Immed Release 5 Mg Tablet) 5 mg PO ONCE PRN PRN Reason: Pain, Moderate(Pain Scale 4-6) Pharmacy Consult (Consult Rx Vancomycin Dosing) 1 each MISCELLANE DAILY PRN PRN Reason: Consult order Sodium Chloride (0.9 % Sodium Chloride Flush 3 Ml Syringe) 3 ml IVFLUSH QSHIFT [facility] Last Admin: 06/28/24 14:53 Dose: 3 ml Documented By: NELI Trimethoprim/Sulfamethoxazole (Sulfamethox/Trimeth 800/160 Tablet) 1 tab PO Q12H [facility] Last Admin: 06/28/24 14:52 Dose: 1 tab Documented By: NELI Labs 06/26/24 11:24 06/28/24 06:05 Labs: Laboratory Results - last 24 hr 06/27/24 06/27/24 06/28/24 16:09 20:14 06:05 Hold Purple Top SEE NOTE Estim Creat Clear Calc 91.7 Estimated GFR > 60 POC Glucose 178 H 228 H Random Vancomycin 9.2 L 06/28/24 06/28/24 07:38 10:19 Hold Purple Top Estim Creat Clear Calc Estimated GFR POC Glucose 267 H 221 H Random Vancomycin Microbiology Microbiology Results: Microbiology 06/26/24 13:24 Blood Culture - Preliminary Blood - Venous No growth after 48 hours. 06/28/24 Unknown Gram Stain - Final Finger Left Middle 06/26/24 13:33 Blood Culture - Preliminary Blood - Venous No growth after 24 hours. Assessment and Plan (1) Abscess of left middle finger: Status: Acute (2) Cellulitis of left hand: Status: Acute Plan 53-year-old gentleman with past medical history significant for hypertension, type 2 diabetes mellitus, hyperlipidemia in class 2 obesity presented with left 3rd fingers swelling redness and limited range of motion likely tenosynovitis/cellulitis, x-ray showed no collection of fluid. Left 3rd finger PIP /hand cellulitis and abscess No sepsis on IV vanco/IV Zosyn started on 06/26/warm compresses/analgesics Underwent I and D by Orthopedic surgery DC IV vanco placed on Bactrim by ortho/DC IV fluids Blood cultures x2 negative, follow abscess culture sensitivity Diabetes mellitus type 2 with hyperglycemia Refusing insulin, since feels once he will be on insulin his body will get use to it. Monitor point of care , glipizide XL 10 mg, hold metformin Hemoglobin A1c 9.1 in 03/24 Discuss diabetic diet Hyperlipidemia continue fenofibrate Hypertension continue metoprolol and follow BP Class 2 obesity recommend low-calorie diet and exercise. Full code Lovenox In my clinical judgment patient requires continued inpatient hospitalization for treatment of left 3rd finger cellulitis /abscess status post I&D requiring IV antibiotic and close clinical monitoring. Quality Stroke Does the patient have a stroke diagnosis?: No VTE Prior VTE?: No VTE Risk Level:: Medical - moderate - high VTE Device Contraindication: Treatment Not Indicated VTE Drug Contraindication: N/A - Med Ordered
[2024-06-28 16:15] LABS: Glucose, Whole Blood 255 mg/dL (60-115)
[2024-06-28 19:55] LABS: Glucose, Whole Blood 176 mg/dL (60-115)
[2024-06-29] MEDS: Sulfamethox/Trimeth 800/160 TABLET 1 TAB PO ×2 (01:52→14:01)
--- NOTE | 2024-06-29 01:54 | PC.NURSE ---
Patient continues to decline the antibiotic via IV, Zosyn times 2 doses ordered to this shift. Shift report indicated he also declined day doses and Hospitalist was made aware at that time. Patient did accept the PO Bactrim. Education and teaching in regards to the importance of the IVABX with no success to convince him. Will continue to monitor. Left hand dressing and josé wrapping C-D-I and elevated to a pillow, pt denies pain
[2024-06-29 03:32] VITALS: BP 145/89; PULSE 84; RESP 18; TEMP 36.3; O2SAT 95
[2024-06-29 07:14] VITALS: BP 145/95; PULSE 98; RESP 16; TEMP 36.9; O2SAT 97
[2024-06-29 07:22] LABS: Glucose, Whole Blood 228 mg/dL (60-115)
[2024-06-29 07:26] LABS: Anion Gap 12 (12-20); Blood Urea Nitrogen 17 mg/dL (9-16); Calcium 9.6 mg/dL (8.4-10.2); Carbon Dioxide 23 mmol/L (22-29); Chloride 110 mmol/L (96-108); Creatinine Clr Calc Pharmacy 71.1; Estimated Glomerular Filt Rate > 60; Glucose Random 219 mg/dL (60-115); Potassium 4.4 mmol/L (3.3-5.1); Sodium 141 mmol/L (135-145)
[2024-06-29] MEDS: 0.9 % Sodium Chloride Flush 3 ML SYRINGE IVFLUSH ×3 (07:42→21:18)
[2024-06-29] MEDS: glipiZIDE XL 10 MG TAB.ER.24 PO (07:42)
[2024-06-29] MEDS: Piperacillin Sodium/Tazobactam 3.375 GM in 0.9 % Sodium Chloride 50 ML IV ×3 (09:27→21:19)
--- NOTE | 2024-06-29 09:38 | HO.POSTANES ---
Post Anesthesia Evaluation Post Anesthesia Evaluation Date of Service: 06/28/24 Vital Signs: Vital Signs Temp Pulse Resp BP Pulse Ox O2 Del Method 06/29/24 07:14 98.5 F 98 16 145/95 H 97 Room Air 06/29/24 03:32 97.4 F 84 18 145/89 H 95 Room Air Mental Status: Awake Pain Control: Satisfactory Nausea/Vomiting: None Anesthesia-Related Issues: No Anes. Related Issues
--- NOTE | 2024-06-29 10:02 | PM.PNORT ---
Subjective Subjective Date of Service: 06/29/24 Interval history: 53 YO M Postop day 1 status post I&D abscess of left middle finger Patient is resting comfortably at bed this Reports pain much improved from prior to surgery, well-controlled at this time No acute events overnight No other complaints or concerns at this time Physical Exam Vital Signs: Vital Signs: Last Vital Signs Temp 98.5 F 06/29/24 07:14 Pulse 98 06/29/24 07:14 Resp 16 06/29/24 07:14 BP 145/95 H 06/29/24 07:14 Pulse Ox 97 06/29/24 07:14 O2 Del Method Room Air 06/29/24 07:14 BMI result Body Mass Index 35.1 Extrem: Other: Left hand middle finger cellulitic, no focal area of fluctuance noted at this time. Edema of the dorsal aspect of the left middle finger. Incision site intact, sutures in place. Minimal drainage on dressing, no active drainage at this time. No tenderness to palpation over the flexor tendons. Sensation intact. Capillary refill brisk. Procedures Date of Service Date of Service: 06/29/24 Progress Note: A&P Assessment and plan (1) Abscess of left middle finger: Status: Acute (2) Cellulitis of left hand: Status: Acute Plan 1. Cellulitis and abscess middle finger status post I and D DOS 06/28/2024 Patient appears to be recovering well postoperatively Patient is educated about the typical recovery course Dressing changed today, dressing changes to be done daily and as needed for any saturation Patient was advised to continue working on range of motion of the left hand to prevent stiffness Patient understands this and is amenable to this plan Continue with IV antibiotics per Medicine Continue all other recommendations per Medicine Time Spent With Patient Time: Total time managing care of this patient today ____ minutes. Quality Stroke Does the patient have a stroke diagnosis?: No VTE Prior VTE?: No VTE Risk Level:: Medical - moderate - high VTE Device Contraindication: Treatment Not Indicated VTE Drug Contraindication: N/A - Med Ordered
[2024-06-29 11:15] LABS: Glucose, Whole Blood 273 mg/dL (60-115)
--- NOTE | 2024-06-29 12:14 | P.PNIM_ITS ---
Subjective Subjective Date of Service: 06/29/24 Interval History: Feeling better this morning, mostly in bed has been refusing antibiotics, refusing insulin, no further drainage from left 3rd finger abscess redness and swelling improving, no fevers, no chills tolerating diet Blood sugars elevated. Review of Systems All other system reviewed and are negative. Physical Exam 2 Vital Signs: Vital Signs: Last Vital Signs Temp 98.5 F 06/29/24 07:14 Pulse 98 06/29/24 07:14 Resp 16 06/29/24 07:14 BP 145/95 H 06/29/24 07:14 Pulse Ox 97 06/29/24 07:14 O2 Del Method Room Air 06/29/24 07:14 BMI result Body Mass Index 35.1 Const: Other: General resting co mfortably in no ac platinum distress. An icteric sclera. Ne ck supple no JVD. CVS regular rate rhythm, Respirator y lungs clear to a uscultation, no re spiratory distress , no wheeze, no rh onchi. Gastrointes tinal abdomen soft , non tender, mery l sounds audible, no guarding , no r igidity. Extremiti es no LE edema. Ne uro non focal Ski n no rash Psych ap propriate affect L eft hand 3rd finge r persistent redne ss, swelling impro myra, both incision s healing well, no drainage, sutures in place. Objective Data Active Medications Acetaminophen (Acetaminophen 325 Mg Tablet) 650 mg PO Q6H PRN PRN Reason: Pain, Mild (Pain Scale 1-3), fever or headache Last Admin: 06/27/24 19:33 Dose: 650 mg Documented By: AMIE Calcium Carbonate (Calcium Carbonate 750 Mg Tab.Chew) 750 mg PO Q4H PRN PRN Reason: Heartburn Enoxaparin Sodium (Enoxaparin Sodium 40 Mg/0.4 Ml Syringe) 40 mg SUBCUT Q24H [facility] Last Admin: 06/28/24 14:55 Dose: Not Given Documented By: NELI Non-Admin Reason: Patient Refused Fenofibrate (Fenofibrate 160 Mg Tablet) 160 mg PO DAILY [facility] Last Admin: 06/29/24 07:44 Dose: Not Given Documented By: NELI Non-Admin Reason: Patient Refused Glipizide (Glipizide Xl 10 Mg Tab.Er.24) 10 mg PO DAILY [facility] Last Admin: 06/29/24 07:42 Dose: 10 mg Documented By: NELI Piperacillin Sod/Tazobactam (Sod 3.375 gm/ Sodium Chloride) 50 mls @ 100 mls/hr IV Q6H [facility] Last Infusion: 06/29/24 10:14 Dose: Infused Documented By: NELI Magnesium Hydroxide (Milk Of Magnesia 30 Ml Oral.Susp) 30 ml PO DAILY PRN PRN Reason: Constipation Melatonin (Melatonin 3 Mg Tablet) 6 mg PO BEDTIME PRN PRN Reason: Insomnia Metoprolol Succinate (Metoprolol Succinate Er 12.5 Mg Halftab.Er.24h) 12.5 mg PO DAILY [facility]; Protocol Last Admin: 06/29/24 07:44 Dose: Not Given Documented By: NELI Non-Admin Reason: Patient Refused Naloxone HCl (Naloxone Hcl 0.4 Mg/Ml Vial) 0.04 mg IVPUSH Q5M PRN PRN Reason: Excessive sedation or RR < 8 Ondansetron HCl (Ondansetron Hcl 4 Mg/2 Ml Vial) 4 mg IVPUSH Q8H PRN PRN Reason: Nausea and Vomiting Oxycodone HCl (Oxycodone Hcl Immed Release 5 Mg Tablet) 5 mg PO Q6H PRN PRN Reason: Pain, Moderate(Pain Scale 4-6) Last Admin: 06/26/24 15:57 Dose: 5 mg Documented By: CRISTO Oxycodone HCl (Oxycodone Hcl Immed Release 5 Mg Tablet) 5 mg PO ONCE PRN PRN Reason: Pain, Moderate(Pain Scale 4-6) Sodium Chloride (0.9 % Sodium Chloride Flush 3 Ml Syringe) 3 ml IVFLUSH QSHIFT [facility] Last Admin: 06/29/24 07:42 Dose: 3 ml Documented By: NELI Trimethoprim/Sulfamethoxazole (Sulfamethox/Trimeth 800/160 Tablet) 1 tab PO Q12H [facility] Last Admin: 06/29/24 01:52 Dose: 1 tab Documented By: AMIE Labs 06/26/24 11:24 06/29/24 05:24 Labs: Laboratory Results - last 24 hr 06/28/24 06/28/24 06/29/24 16:11 19:51 05:24 Hold Purple Top SEE NOTE Anion Gap 12 Estim Creat Clear Calc 71.1 Estimated GFR > 60 POC Glucose 255 H 176 H Random Glucose 219 H Calcium 9.6 06/29/24 06/29/24 07:16 11:10 Hold Purple Top Anion Gap Estim Creat Clear Calc Estimated GFR POC Glucose 228 H 273 H Random Glucose Calcium Microbiology Microbiology Results: Microbiology 06/28/24 Unknown Gram Stain - Final Finger Left Middle Routine Culture - Preliminary Culture in progress. 06/26/24 13:33 Blood Culture - Preliminary Blood - Venous No growth after 48 hours. 06/26/24 13:24 Blood Culture - Preliminary Blood - Venous No growth after 48 hours. Assessment and Plan (1) Abscess of left middle finger: Status: Acute (2) Cellulitis of left hand: Status: Acute Plan 53-year-old gentleman with past medical history significant for hypertension, type 2 diabetes mellitus, hyperlipidemia in class 2 obesity presented with left 3rd fingers swelling redness and limited range of motion likely tenosynovitis/cellulitis, x-ray showed no collection of fluid. Left 3rd finger PIP /hand cellulitis and abscess No sepsis, blood cultures times 48 hours negative on IV Zosyn started on patient has refused multiple dosages, vancomycin discontinued 06/28 and patient placed on Bactrim by mouth 06/28 Underwent I and D by Orthopedic surgery on , dressing change as per Orthopedic surgery follow abscess culture sensitivity, recommend out of bed to chair and ambulation Outpatient follow-up with ortho Diabetes mellitus type 2 with hyperglycemia Refusing insulin, since feels once he will be on insulin his body will get use to it. Monitor point of care , glipizide XL 10 mg, resume metformin Hemoglobin A1c 9.1 in 03/24 Discussed strict diabetic diet and outpatient follow-up with PCP Hyperlipidemia continue fenofibrate Hypertension continue metoprolol and follow BP Class 2 obesity recommend low-calorie diet and exercise. Full code Lovenox In my clinical judgment patient requires continued inpatient hospitalization for treatment of left 3rd finger cellulitis /abscess status post I&D requiring IV antibiotic and close clinical monitoring. Quality Stroke Does the patient have a stroke diagnosis?: No VTE Prior VTE?: No VTE Risk Level:: Medical - moderate - high VTE Device Contraindication: Treatment Not Indicated VTE Drug Contraindication: N/A - Med Ordered
[2024-06-29 15:06] VITALS: BP 140/83; PULSE 96; RESP 16; TEMP 36.7; O2SAT 98
[2024-06-29 15:36] LABS: Glucose, Whole Blood 253 mg/dL (60-115)
[2024-06-29] MEDS: metFORMIN HCl 500 MG TABLET PO (16:39)
[2024-06-29 19:27] VITALS: BP 143/89; PULSE 95; RESP 16; TEMP 36.7; O2SAT 97
[2024-06-29 21:01] LABS: Glucose, Whole Blood 216 mg/dL (60-115)
[2024-06-30] MEDS: Sulfamethox/Trimeth 800/160 TABLET 1 TAB PO (02:22)
[2024-06-30] MEDS: Piperacillin Sodium/Tazobactam 3.375 GM in 0.9 % Sodium Chloride 50 ML IV ×2 (02:23→08:42)
[2024-06-30 02:54] VITALS: BP 128/87; PULSE 91; RESP 18; TEMP 36.6; O2SAT 98
[2024-06-30 07:25] LABS: Glucose, Whole Blood 215 mg/dL (60-115)
[2024-06-30 07:27] VITALS: BP 149/86; PULSE 97; RESP 18; TEMP 36.5; O2SAT 96
[2024-06-30] MEDS: glipiZIDE XL 10 MG TAB.ER.24 PO (08:42)
[2024-06-30] MEDS: metFORMIN HCl 500 MG TABLET PO (08:42)
[2024-06-30] MEDS: 0.9 % Sodium Chloride Flush 3 ML SYRINGE IVFLUSH (08:42)
--- NOTE | 2024-06-30 09:29 | PM.PNORT ---
Subjective Subjective Date of Service: 06/30/24 Interval history: 53 YO M Postop day 2 status post I&D abscess of left middle finger Patient is resting comfortably in bed at this time Patient reports no pain at this time Patient does report that he feels the redness and swelling have improved since yesterday No acute events overnight No other complaints or concerns at this time Physical Exam Vital Signs: Vital Signs: Last Vital Signs Temp 97.7 F 06/30/24 07:27 Pulse 97 06/30/24 07:27 Resp 18 06/30/24 07:27 BP 149/86 H 06/30/24 07:27 Pulse Ox 96 06/30/24 07:27 O2 Del Method Room Air 06/30/24 07:27 BMI result Body Mass Index 35.1 Extrem: Other: Patient is alert, oriented, and in no acute distress. Neuro: Normal sensation of the tips of all digits of the left hand at this time Vascular: Cap refill brisk Pain: Patient reports no tenderness to palpation about DIP, PIP, MCP joints, or elsewhere of the left middle finger Range of motion is painless ROM: Patient is able to get approximately 75% of the way to a closed fist with the left middle finger at this time, improved from yesterday Patient is able to make a closed fist and extend all other digits of the left hand fully and without difficulty Skin: Edema noted about the middle phalanx of the left middle finger Focal area of fluctuance noted near one of the I&D sites Of note, I am able to express approximately 1 cc of purulent discharge from the incision sites Psych: Appears grossly normal Affect normal Attitude cooperative Procedures Date of Service Date of Service: 06/30/24 Progress Note: A&P Assessment and plan (1) Abscess of left middle finger: Status: Acute (2) Cellulitis of left hand: Status: Acute Plan 1. Cellulitis and abscess middle finger status post I and D DOS 06/28/2024 Patient appears to be recovering well postoperatively Patient is educated about the typical recovery course Dressing changed today, dressing changes to be done daily and as needed for any saturation Patient was advised to continue working on range of motion of the left hand to prevent stiffness Patient understands this and is amenable to this plan Patient can be discharged from an orthopedic surgery perspective today after suture removal and opening of wounds to encourage drainage of any purulence that has accumulated Daily dressing changes at home Encourage warm soaks with half-strength peroxide and water when at home When discharge, patient should be placed on p.o. antibiotics Patient should follow-up in office later this week or early next week for wound check Continue with IV antibiotics per Medicine Continue all other recommendations per Medicine Time Spent With Patient Time: Total time managing care of this patient today ____ minutes. Quality Stroke Does the patient have a stroke diagnosis?: No VTE Prior VTE?: No VTE Risk Level:: Medical - moderate - high VTE Device Contraindication: Treatment Not Indicated VTE Drug Contraindication: N/A - Med Ordered
--- NOTE | 2024-06-30 10:32 | MHC.CM.PN ---
Per MD rounds, patient medically cleared for dc home. Patient declines VNA for wound care. States he will call the wound clinic to schedule an appt. Referral faxed. His friend can help w/ dressing changes as needed. Friend will also transport home.
--- NOTE | 2024-06-30 10:35 | HO.WOUND ---
Wound Consult: deferred to Surgery team 53yr old? male [place] [facility] [place] - See progress notes and H&P for detailed history.? Wound consult placed for Left 3rd finger wound. Chart review reveals patient was taken to OR by Orthopedic surgery team will defer to Ortho Surgery team for topical orders. Will follow along with the chart to see if topical orders are needed in the future. ? Today wound was assessed with Mahesh DANG from Ortho team - there is concern for continued purulent fluid collection beneath the incisions. Some purulent chunky creamy drainage was expressed. Will continue to defer to Ortho team however should continued I&D be needed or stitches removed for improved drainage recommend packing wound bed with Durafiber or packing strip to aid in drainage. Discussed at bedside with ALTON Aragon and patient. Will defer to Ortho team at this time.
--- NOTE | 2024-06-30 10:48 | P.DS_ITS ---
DS: Providers Provider Date of Service: 06/30/24 Date of admission: 06/26/24 14:24 Primary care physician: Saravanan Valle MD Consults: 06/26/24 14:29 Consult to Orthopedics Routine Consulting Provider: [facility] Orthopedic Surgeons Reason for consultation: Left 3rd finger tenosynovitis Has provider been notified: No 06/26/24 17:32 Consult to Wound Care Routine Reason for consultation: Left 3rd digit. DS: Diagnosis Discharge Diagnosis (1) Abscess of left middle finger: Status: Acute (2) Cellulitis of left hand: Status: Acute DS: Summary Hospital Course Hospital Course: History of present illness: Date of Service: 06/26/24 Chief Complaint: Left 3rd finger swelling redness and pain 53-year-old gentleman with past medical history significant for diabetes mellitus type 2, hyperlipidemia, hypertension presented to [facility] due to left 3rd finger redness, swelling of several days duration, now worsening and spreading towards dorsum of hand, as per patient he cut his left 3rd finger with a knife 1 week ago, he cleansed it with alcohol swab, use antibiotic cream and Band-Aid, it was healing well but 5 days ago on Friday he mixed cement with water, and used left hand without gloves to mixed dirty water with the cement and in the evening he noted the cut opened up again, he applied antibiotic cream and Band-Aid but noted to have persistent swelling, redness, and today his friend pointed out that redness is spreading towards dorsum of hand, that made him concerned and come to the ED,he complaints of associated chills, no fevers ,denies nausea, no vomiting, no lightheadedness, dizziness, workup in the emergency room showed a blood sugar of 241 normal WBC, normal electrolytes and renal function, lactic acid 1.1, CRP 1.41, x-ray of hand showed no osteomyelitis but soft tissue swelling 3rd finger and dorsum of hand, blood pressure 144/100 no fevers pulse 102 normal respiratory rate, patient received IV vancomycin and Zosyn , ED provider spoke with orthopedic surgery they recommend medicine to admit patient and use warm soaks. Hospital course: 53-year-old gentleman with past medical history significant for hypertension, type 2 diabetes mellitus, hyperlipidemia in class 2 obesity presented with left 3rd fingers swelling redness and limited range of motion likely due to abscess and cellulitis, x-ray of hand showed no fluid collection patient admitted to [facility] with following medical issues. Left 3rd finger PIP /hand cellulitis and abscess, admitted to medical floor noted to have no sepsis initially treated with IV Zosyn and IV vancomycin blood cultures x2 negative times 48 hours subsequently patient seen by orthopedic surgeon and underwent I and D on 06/28, IV vancomycin discontinued and patient placed on Bactrim, wound culture in progress but noted to have no organisms, redness, swelling of finger and hand has significantly improved, patient flexion, extension of left hand has also improved, since patient has no fever, no pain, he is being discharged home on by mouth doxycycline for 6 more days for total 10 day course of antibiotic, he is scheduled for outpatient orthopedic surgery appointment on July 02, he is recommended to continue daily dressing, warm compresses and [id number]-[id number] exercises. In regard to Diabetes mellitus type 2 with hyperglycemia noted to have elevated blood sugars in 200 range, hemoglobin A1c 9.1 patient was not following diabetic diet and was noncompliant with medication he is recommended to continue metformin 500 mg 1 tablet twice daily and would likely need up titration as per PCP, started on glipizide XL 10 mg daily and has been strongly advised to follow diabetic diet, patient is resistant to use of insulin with the belief that once he start insulin his body will get use to it. Hyperlipidemia continue fenofibrate Hypertension continue metoprolol dose increased to 25 mg daily, BP remains elevated patient can be started on low-dose lisinopril Class 2 obesity recommend low-calorie diet and exercise. Time Attestation Discharge Coordination Time (in mins): 36 Quality: Safe Use of Opioids Does Pt have an Active Cancer Diagnosis on the Problem List?: No Quality: Stroke Does the patient have a stroke diagnosis?: No Physical Exam Vital Signs: Vital Signs: Last Vital Signs Temp 97.7 F 06/30/24 07:27 Pulse 97 06/30/24 07:27 Resp 18 06/30/24 07:27 BP 149/86 H 06/30/24 07:27 Pulse Ox 96 06/30/24 07:27 O2 Del Method Room Air 06/30/24 07:27 BMI result Body Mass Index 35.1 Const: Other: General resting comfortably in no acute distress. Anicteric sclera. Neck supple no JVD. CVS regular rate rhythm, Respiratory lungs clear to auscultation, no respiratory distress, no wheeze, no rhonchi. Gastrointestinal abdomen soft, non tender, bowel sounds audible, no guarding , no rigidity. Extremities no LE edema. Neuro non focal Skin no rash Psych appropriate affect Left hand 3rd finger swelling, redness and hyperemia significantly improved, left middle finger flexion improving able to extend all digits, no tenderness DS: Data Data Completed and Pending Labs on day of discharge: Laboratory Results - last 24 hr 06/29/24 06/29/24 06/29/24 11:10 15:32 20:52 POC Glucose 273 H 253 H 216 H 06/30/24 07:19 POC Glucose 215 H Preliminary micro results at discharge 06/28/24 Unknown Routine Culture - Preliminary Finger Left Middle Culture in progress. 06/26/24 13:33 Blood Culture - Preliminary Blood - Venous No growth after 48 hours. 06/26/24 13:24 Blood Culture - Preliminary Blood - Venous No growth after 48 hours. Discharge Plan Discharge Anticipated Discharge Date/Time: 06/30/24 10:30 Patient Disposition: Home, Self-Care Discharge Diagnosis: Left 3rd finger cellulitis/abscess Hyperglycemia Referrals: [facility] Wound Care [Outside] - 1 Week (Call for follow up ) Saravanan Valle MD [Primary Care Provider] - 1 Week Discharge Medications: New glipizide 10 mg Tablet Extended Release 24hr 10 mg PO DAILY Qty: 30 0RF doxycycline monohydrate 100 mg capsule 100 mg PO BID Qty: 12 0RF Continued (DME) FreeStyle Lite Strips Strip See Rx Instructions Not Applicable BID Qty: 50 1RF Rx Instructions: As directed 2x/day (DME) lancets [FreeStyle Lancets] 28 gauge misc See Rx Instructions topical BID Qty: 100 1RF Rx Instructions: As directed 2x/day fenofibrate 160 mg tablet 160 mg PO DAILY 90 Days Qty: 90 3RF metformin 500 mg tablet 500 mg PO BID 30 Days Qty: 60 2RF (DME) blood pressure test kit-large Kit See Rx Instructions .ROUTE DAILY Qty: 1 Rx Instructions: As directed Changed metoprolol succinate 25 mg tablet extended release 24 hr 25 mg PO DAILY 30 Days Qty: 15 2RF Discharge Orders: Discharge Order (Routine); Ordered 06/30/24 Ordered By: Mary Sprague Diet: Diabetic diet Activity on Discharge: As tolerated Stand Alone Forms: Patient Portal Discharge page Print Language: Setswana Care Plan Goals: Left 3rd finger cellulitis/abscess take doxycycline 1 tablet twice daily for 6 more days Continue daily dressing change and as needed for any saturations Continue range of motion exercises of left hand to prevent stiffness Warm soaks with half-strength peroxide and water at home Health Concerns: Diabetes mellitus with hyperglycemia continue metformin 1 tablet twice daily and take glipizide XL 10 mg daily, follow strict diabetic diet Hypertension dose of metoprolol increased to 25 mg daily Plan of Treatment: Follow-up with Orthopedic surgery on July 02 as per orthopedic surgeon Call primary care physician follow-up appointment for monitoring of blood sugars and blood pressure Assessment: As above
[2024-06-30 11:09] LABS: Glucose, Whole Blood 203 mg/dL (60-115)
== END 2024-06-30 12:53 | disposition home or self-care (01) | DRG 383 ==
LOC: HO.ED 13:18 → HO.EDOVER 14:45 → HO.S3 15:52
PROVIDERS: Nurse Practitioner Family; Orthopaedic Surgery; Admitting Provider Hospitalist; Emergency Provider Emergency Medicine Emergency Medical Services; PCP Family Medicine; Visit Provider Hospitalist
PROC: 0J9K3ZZ Drainage of Left Hand Subcutaneous Tissue and Fascia, Percutaneous Approach (ICD-10-PCS; principal; 2024-06-28 11:10)
DX: L02.512 Cutaneous abscess of left hand (principal); E11.65 Type 2 diabetes mellitus with hyperglycemia; L03.012 Cellulitis of left finger; E78.5 Hyperlipidemia, unspecified; E66.812 Obesity, class 2; M65.942 Unspecified synovitis and tenosynovitis, left hand; Z68.35 Body mass index [BMI] 35.0-35.9, adult; Z71.3 Dietary counseling and surveillance; I10 Essential (primary) hypertension; Z91.148 Patient's other noncompliance with medication regimen for other reason; Z79.84 Long term (current) use of oral hypoglycemic drugs; Z79.899 Other long term (current) drug therapy
CPT/HCPCS: 36415; 73130; 80048; 80053; 80202; 82565; 82947; 83605; 85025; 85652; 86140; 87040; 87070; 87147; 87205; 99285; J0690; J2003; J2543; J2704; J3010; J3371; J7120

== ENCOUNTER → 2024-06-26 14:24 | Outpatient (BNV) | payer OTHER, SELFPAY | PROVIDERS: Admitting Provider Hospitalist; Emergency Provider Emergency Medicine Emergency Medical Services; PCP Family Medicine; Visit Provider Physician Assistant | DX: L03.114 Cellulitis of left upper limb (principal); L02.512 Cutaneous abscess of left hand; E11.9 Type 2 diabetes mellitus without complications | CPT/HCPCS: 26010; 99024; 99222 ==

== ENCOUNTER → 2024-06-26 14:24 | Outpatient (BNV) | payer OTHER, SELFPAY | PROVIDERS: Admitting Provider Hospitalist; Emergency Provider Emergency Medicine Emergency Medical Services; PCP Family Medicine; Visit Provider Hospitalist | DX: L02.512 Cutaneous abscess of left hand (principal); L03.114 Cellulitis of left upper limb; E11.65 Type 2 diabetes mellitus with hyperglycemia | CPT/HCPCS: 99222; 99232; 99239 ==

== ENCOUNTER 2024-07-02 12:49 | Outpatient (AMB) | payer OTHER, SELFPAY ==
--- NOTE | 2024-07-02 12:55 | A.OFFVIS_ITS ---
Vital Signs 07/02/24 13:02 Height 5 ft 2 in Weight 191 lb BMI 34.9 Intake Visit Reasons: PO I&D abscess of left middle finger 06/28/24 AR Intake Note: Aliza is a 53 yo male who presents today post-operatively s/p I&D abscess of the left middle finger, DOS 06/28/[address] Ramos. Patient reports he continues to take antibiotics. He is not taking anything for pain at this time. Denies numbness or tingling. Allergies No Known Allergies Allergy (Verified 07/02/24 13:01) HPI HPI PO I&D abscess of left middle finger 06/28/24 AR: Details: Patient is a 53-year-old male who presents for postoperative evaluation status post I and D of abscess of left middle finger, DOS 06/28/[address] Ramos. Today, the patient reports that he is feeling very well, active discharge from the surgery site. Patient states he has been changing his dressings daily since being discharged from the hospital. Patient has also been compliant with antibiotics prescribed to him by the internal medicine team. The patient states that he does not see that there would be any reason for him to possibly have another surgery, as he is feeling much better. The patient also states he has been working on range of motion, and his range of motion of his left hand has improved significantly. Patient denies any numbness or tingling in the left upper extremity. No other acute complaints or concerns at this time COUNT INCLUDES THE [facility] Medical History (Updated 06/28/24 @ 11:07 by Barbara Gonsales RN) Hypertension Type 2 diabetes mellitus Perineal fissure Hyperlipemia Surgical History (Updated 06/28/24 @ 11:08 by Barbara Gonsales RN) Hx of arthroscopic knee surgery Family History Mother High blood pressure Father Diabetes Social History Household Members: None Housing: House Are you a primary child care leader to a significant other at home: No Do you presently have visiting nurse or other home services: No Patient Tobacco Use Status: Never used Tobacco e-Cigarette/Vaping Use: Never Used service: No Current occupational status: employed 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 Neuro: Normal sensation of the tips of all digits of the left hand at this time Vascular: Cap refill brisk Pain: Patient reports no tenderness to palpation about DIP, PIP, MCP joints, or elsewhere of the left middle finger Range of motion is painless ROM: Patient is able to get approximately 75% of the way to a closed fist with the left middle finger at this time, improved from yesterday Patient is able to make a closed fist and extend all other digits of the left hand fully and without difficulty Skin: Edema noted about the middle phalanx of the left middle finger Focal area of fluctuance noted near one of the I&D sites Of note, I am able to express approximately 1 cc of purulent discharge from the incision sites Psych: Appears grossly normal Affect normal Attitude cooperative Assessment & Plan Assessment & Plan (1) Abscess of left middle finger: Code(s): L02.512 - Cutaneous abscess of left hand Category: Medical Plan 1. Abscess of left middle finger Status post irrigation and debridement DOS 06/28/2024 Patient was discussed with Dr. Ramos, who was not available to see the patie nt in clinic today, and a collaborative treatment plan was formed: At this time, patient is educated that we will need to change his antibiotics, as the doxycycline previously prescribed upon discharge from the hospital is not adequate coverage for the group B strep revealed on the cultures from the irrigation and debridement Patient was amenable to this plan Patient was prescribed a 10 day course of Augmentin to be taken b.i.d. Patient is also educated he should be doing warm water and half-strength peroxide soaks to encourage drainage of any purulence remaining in his wounds Patient is also educated should continue to keep the area dressed while on about, but leaving it open to air with some antibiotic ointment at home is perfectly acceptable Patient will follow-up next week with Dr. Ramos for repeat wound check and assessment, sooner with any acute concerns Medications: New amoxicillin-pot clavulanate 875-125 mg 1 tab PO BID 20 tabs 0RF 10 days Coding Level of Care Code Global (19709) Diagnoses Abscess of left middle finger L02.512
[2024-07-02 13:02] VITALS: BMI 34.9
== END 2024-07-02 13:41 | disposition home or self-care (01) ==
LOC: HO.HOS 12:50
PROVIDERS: PCP Family Medicine
DX: L02.512 Cutaneous abscess of left hand (principal)
CPT/HCPCS: 99024

== ENCOUNTER → 2024-07-02 12:49 | Outpatient (BNVA) | payer OTHER, SELFPAY | PROVIDERS: PCP Family Medicine | DX: L02.512 Cutaneous abscess of left hand (principal) | CPT/HCPCS: 99212 ==

== ENCOUNTER 2024-07-06 13:22 | Outpatient (AMB) | payer OTHER, SELFPAY ==
--- NOTE | 2024-07-06 13:38 | A.OFFVIS_ITS ---
Vital Signs 07/06/24 13:40 Height 5 ft 2 in Weight 191 lb BMI 34.9 Intake Visit Reasons: PO I&D abscess of left middle finger 06/28/24 AR Intake Note: Aliza is a 53 year old right hand dominant male who presents today for a follow up of his left middle finger s/p Left Middle Finger I&D 06/28/24. Patient reports that he is doing well, his pain and swelling are improving. He continues to take Abx and completes daily dressing changes. Dressing removed today in office. Allergies No Known Allergies Allergy (Verified 07/06/24 13:44) HPI HPI PO I&D abscess of left middle finger 06/28/24 AR: Details: Patient is a 53-year-old male who presents for postoperative evaluation status post I and D of abscess of left middle finger, DOS 06/28/[address] Ramos. Today, the patient reports that he is feeling very well, active discharge from the surgery site. Patient states he has been changing his dressings daily since being discharged from the hospital. Patient has also been compliant with antibiotics prescribed to him by the internal medicine team. The patient states that he does not see that there would be any reason for him to possibly have another surgery, as he is feeling much better. The patient also states he has been working on range of motion, and his range of motion of his left hand has improved significantly. Patient denies any numbness or tingling in the left upper extremity. No other acute complaints or concerns at this time [facility] Medical History (Updated 07/08/24 @ 00:03 by Jami Galicia) Hypertension Type 2 diabetes mellitus Perineal fissure Hyperlipemia Surgical History (Updated 06/28/24 @ 11:08 by Barbara Gonsales RN) Hx of arthroscopic knee surgery Family History Mother High blood pressure Father Diabetes Social History Household Members: None Housing: House Are you a primary resident care aide to a significant other at home: No Do you presently have visiting nurse or other home services: No Patient Tobacco Use Status: Never used Tobacco e-Cigarette/Vaping Use: Never Used service: No Current occupational status: employed 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 Neuro: Normal sensation of the tips of all digits of the left hand at this time Vascular: Cap refill brisk Pain: Patient reports no tenderness to palpation about DIP, PIP, MCP joints, or elsewhere of the left middle finger Range of motion is painless ROM: Patient is able to get approximately 75% of the way to a closed fist with the left middle finger at this time, improved from yesterday Patient is able to make a closed fist and extend all other digits of the left hand fully and without difficulty Skin: Edema noted about the middle phalanx of the left middle finger Focal area of fluctuance noted near one of the I&D sites No purulence able to be expressed at this time Psych: Appears grossly normal Affect normal Attitude cooperative Assessment & Plan Assessment & Plan (1) Abscess of left middle finger: Code(s): L02.512 - Cutaneous abscess of left hand Category: Medical Plan 1. Abscess of left middle finger Status post irrigation and debridement DOS 06/28/2024 Patient was discussed with Dr. Ramos, who was not available to see the patient in clinic today, and a collaborative treatment plan was formed: At this time, patient is educated that we will need to change his antibiotics, as the doxycycline previously prescribed upon discharge from the hospital is not adequate coverage for the group B strep revealed on the cultures from the irrigation and debridement Patient was amenable to this plan Patient was filled a 10 day course of Augmentin to be taken b.i.d. Patient is also educated he should be doing warm water and half-strength peroxide soaks to encourage drainage of any purulence remaining in his wounds Patient is also educated should continue to keep the area dressed while on about, but leaving it open to air with some antibiotic ointment at home is perfectly acceptable Patient will follow-up next week with Dr. Ramos for repeat wound check and assessment, sooner with any acute concerns Coding Level of Care Code Global (75379) Diagnoses Abscess of left middle finger L02.512
[2024-07-06 13:40] VITALS: BMI 34.9
== END 2024-07-06 14:17 | disposition home or self-care (01) ==
LOC: HO.HOS 13:22
PROVIDERS: PCP Family Medicine
DX: L02.512 Cutaneous abscess of left hand (principal)
CPT/HCPCS: 99024

== ENCOUNTER → 2024-07-06 13:22 | Outpatient (BNVA) | payer OTHER, SELFPAY | PROVIDERS: PCP Family Medicine | DX: Z48.817 Encounter for surgical aftercare following surgery on the skin and subcutaneous tissue (principal); Z98.890 Other specified postprocedural states | CPT/HCPCS: 99212 ==

== ENCOUNTER 2025-02-22 14:26 | Outpatient (AMB) | payer OTHER, SELFPAY ==
[2025-02-22 15:12] VITALS: BP 127/76; PULSE 100; TEMP 36.6; O2SAT 98; BMI 34.5
--- NOTE | 2025-02-22 15:12 | AM.OFFWIN_ITS ---
Intake Vital Signs 02/22/25 15:12 Height 5 ft 2 in Weight 188 lb 8 oz BMI 34.5 BP 127/76 Blood Pressure Location Rt brachial Position Sitting Pulse 100 Pulse Source Pulse Oximeter Temp 97.8 F Temp Source Oral Pulse Oximetry (%) 98 Oxygen Delivery Method Room Air Intake Visit Reasons: EP LT Foot swelling Patient Tobacco Use Status: Never used Tobacco Allergies No Known Allergies Allergy (Verified 02/22/25 15:19) HPI HPI Comments History of Present Illness Details History of Present Illness - The patient is a 54-year-old male pres enting with left ankle pain. - The issue began approximately 10 years ago when the patient slipped while carrying heavy equipment at work, resulting in significant pain. - The patient did not seek medical atten tion initially due to lack of insurance. - Over the years, the pain improved but has worsened over the past 7-8 months. - The patient reports that the pain is e xacerbated by weight-bearing activities and has become severe enough to interfere with daily activities, such as moving heavy objects. - An orthopedic consultation suggested p ossible rebreaking and surgical intervention, which the patient declined at the time. - The patient has used a brace in the [facility], which was not effective in alleviating symptoms. - Currently, the patient experiences johnna n primarily during ambulation and weight-bearing, with no pain at rest or upon touch. - He has no new trauma or falls. - He denies numbness, tingling, swelling , or bruises. Physical Exam General: Cooperative, healthy appearing, comfortable, no acute distress and well developed Respiratory: Normal respiratory effort and able to speak in complete sentences. Clear to auscultation bilaterally Cardiovascular: Regular rate and rhythm. Normal S1 and S2. Pulses are 1+ on the LE bilaterally. Skin: No rashes or lesions noted. Musculoskeletal: Deformity noted of the left ankle. Decrease ROM of the ankle due to deformity. No TTP of medial or lateral malleolus. No TTP of the tarsals or metatarsals on the left foot. DTR are 1+ on the LE. Negative Homans noted. Ambulates with a steady gait with left foot turned outward. Strength is 5/5 on the LE bilaterally. Neuro: Sensation is intact on the LE bilaterally. [facility] Medical History (Updated 07/08/24 @ 00:03 by Background Dajace) Hypertension Type 2 diabetes mellitus Perineal fissure Hyperlipemia Surgical History (Updated 06/28/24 @ 11:08 by Barbara Gonsales RN) Hx of arthroscopic knee surgery Family History Mother High blood pressure Father Diabetes Social History Household Members: None Housing: House Are you a primary career developer to a significant other at home: No Do you presently have visiting nurse or other home services: No Patient Tobacco Use Status: Never used Tobacco e-Cigarette/Vaping Use: Never Used service: No Current occupational status: employed 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, 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 Cognitive needs: No Hearing needs: No Vision needs: No Review of Systems Const All systems reviewed & are unremarkable except as noted in HPI and below Physical Exam Vital Signs: Last Vital Signs Temp 97.8 F 02/22/25 15:12 Pulse 100 02/22/25 15:12 BP 127/76 02/22/25 15:12 Pulse Ox 98 02/22/25 15:12 Oxygen Delivery Method Room Air 02/22/25 15:12 BMI result Body Mass Index 34.5 Results Reviewed Results Reviewed: Reviewed the ankle x-ray- no acute fx, old fracture noted Assessment & Plan Assessment & Plan (1) Ankle pain, chronic: Code(s): M25.579 - Pain in unspecified ankle and joints of unspecified foot; G89.29 - Ot her chronic pain Qualifiers: Laterality: left Qualified Code(s): M25.572 - Pain in left ankle and joints of left foot; G89.29 - Other chronic pain Plan Most likely chronic pain s/p injury vs arthritis Ankle x-ray done in the office Plan - Rest, ice and elevation - Tylenol or motrin as needed - will refer to ortho - follow up with PCP Orders: Orders XR ankle LT min 3V Today M25.572 - Pain in left ankle and joints of left foot Referrals Orthopedics Referral G89.29 - Other chronic pain, M25.579 - Pain in unspecified ankle and joints of unspecified foot Coding Level of Care Code Est Pt Level 4 (14587) Diagnoses Chronic pain of left ankle M25.572; G89.29 Laterality: left
--- OUTSIDE RECORDS SUMMARY | 2025-02-22 17:37 | XMS_ITS | Clinical Summary ---
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 Name Role Phone Unavailable Primary Care Provider Unavailabl e Social History Tobacco Use Types Packs/Day Years Used Date Smoking Tobacco: Never Assessed Sex and Gender Information Value Date Recorded Sex Assigned at Male 07/01/2022 10:37 AM EDT Legal Sex Male 10:37 AM EDT Gender Identity Male 07/01/2022 10:37 AM EDT Sexual Orientation Straight 07/01/2022 10 :37 AM EDT Last Filed Vital Signs Vital Sign Reading Time Taken Comments Blood Pressure 150/94 04/26/2022 12:08 AM EDT Pulse 92 04/26/2022 12:08 AM EDT Temperature - - Respiratory Rate - - Oxygen Saturation - - Inhaled Oxygen Concentration - - Weight 89 kg (196 lb 3.2 oz) 04/26/2022 12:08 AM EDT Height 167 cm (5' 5.75 ) 04/26/2022 12:08 AM EDT Body Mass Index 31.91 04/26/2022 12:08 AM EDT Plan of Treatment Health Maintenance Due Date Last Done Comments CT Colonography 1971 Colonoscopy 1971 Colorectal Cancer Screening 1971 Depression Screening 1971 FIT DNA/Cologuard 1971 FIT 1971 FOBT 1971 Sigmoidoscopy 1971 Disability Screening 1971 Alcohol/Substance Use Screening 1983 Tobacco Screening 1983 DTaP/Tdap/Td Vaccines (1 - Tdap) 1990 Hepatitis B Vaccines (1 of 3 - 19+ 3-dose series) 1990 Pneumococcal Vaccine: 50+ Years (1 of 1 - PCV) 2021 Zoster Vaccines (1 of 2) 2021 COVID-19 Vaccine (1 - 2023-2 5 season) 2024 Influenza Vaccine (Season Ended) 2025 Lipid Panel 11/23/2026 11/23/2021, 11/28/2020 RSV Patients and Patients Aged 60 years or older (1 - 1-dose 75+ series) 2046 HIB Vaccines Aged Out No longer eligi ble based on patient's age to complete this topic HPV Vaccines Aged Out No longer eligi ble based on patient's age to complete this topic Hepatitis A Vaccines Aged Out No long er eligible based on patient's age to complete this topic IPV Vaccines Aged Out No longer eligi ble based on patient's age to complete this topic Meningococcal B Vaccine Aged Out No l onger eligible based on patient's age to complete this topic Meningococcal Vaccine Aged Out No shreya axel eligible based on patient's age to complete this topic RSV under 20 months Aged Out No longe r eligible based on patient's age to complete this topic Rotavirus Vaccines Aged Out No longer eligible based on patient's age to complete this topic Procedures Procedure Name Priority Date/Time Associated Diagnosis Comments LIPID PANEL, STANDARD Routine 11/23/2021 11:11 AM EDT from Last 3 Months or Most Recently Relevant to Health Maintenance Results * (ABNORMAL) LIPID PANEL, STANDARD (11/23/2021 11:11 AM EDT) Chol/HDLC Ratio 11.8(H) <5.0 (calc) [facility] Cholesterol, Total 377(H) <200 mg/dL [facility] HDL Cholesterol 32(L) > OR = 40 mg/dL [facility] LDL Cholesterol SEE COMMENT mg/dL (calc) [facility] Comment: LDL cholesterol not calculated. Triglyceride levels greater than 400 mg/dL invalidate calculated LDL results. Reference range: <100 Desirable range <100 mg/dL for primary prevention; <70 mg/dL for patients with CHD or diabetic patients with > or = 2 CHD risk factors. LDL-C is now calculated using the Belinda calculation, which is a validated novel method providing better accuracy than the Friedewald equation in the estimation of LDL-C. Alfa SS et al. IKE. 2013;310(19): 5782-0025 (http://education.[employer]faq/DOG148) Non-HDL Cholesterol 345(H) <130 mg/dL (calc) [facility] Comment: Non-HDL level > or = 220 is very high and may indicate genetic familial hypercholesterolemia (FH). Clinical assessment and measurement of blood lipid levels should be considered for all first-degree relatives of patients with an FH diagnosis. For patients with diabetes plus 1 major ASCVD risk factor, treating to a non-HDL-C goal of <100 mg/dL (LDL-C of <70 mg/dL) is considered a therapeutic option. Triglycerides 1,616(H) <150 mg/dL [facility] Comment: Verified by repeat analysis. If a non-fasting specimen was collected, consider repeat triglyceride testing on a fasting specimen if clinically indicated. Milena et al. J. of Clin. Lipidol. 2015;9:129-169. There is increased risk of pancreatitis when the triglyceride concentration is very high (> or = 500 mg/dL, especially if > or = 1000 mg/dL). Milena et al. J. of Clin. Lipidol. 2015;9:129-169. 11/23/2021 11:1 1 AM EDT us Elena Henning MD LAB BLOOD ORDERABLES Fin al Result [facility] [address] from Last 3 Months or Most Recently Relevant to Health Maintenance
== END 2025-02-22 16:11 | disposition home or self-care (01) ==
PROVIDERS: PCP Family Medicine; Visit Provider Physician Assistant Medical
DX: M25.572 Pain in left ankle and joints of left foot (principal); G89.29 Other chronic pain

== ENCOUNTER 2025-02-22 14:26 | Outpatient (REF) | payer OTHER, SELFPAY ==
--- NOTE | ~2025-02-22 | XR_ITS ---
EXAMINATION: XR ANKLE, LEFT CLINICAL INFORMATION: M25.572 - Pain in left ankle and joints of left foot COMPARISON: None available. TECHNIQUE: AP, lateral, and mortise views of the left ankle. FINDINGS: No fracture, dislocation, or suspicious bone lesion. Pes planus deformity of the foot. Moderate to severe degenerative changes throughout the tibiotalar joint, fibulotalar joint, subtalar joints, intertarsal joints. There is a small plantar calcaneal spur. There is mild diffuse soft tissue swelling. XR/XR ankle LT min 3V IMPRESSION: 1. No acute bony abnormalities. 2. Moderate to severe degenerative arthritis throughout the ankle joint, subtalar joints, and intertarsal joints. (Probable early Charcot changes) 3. Pes planus. 4. Diffuse mild soft tissue swelling. Electronically signed by: Hermes Ya MD 02/22/2025 03:58 PM EDT
== END 2025-02-22 14:27 | disposition home or self-care (01) ==
LOC: HO.HMGCX 14:26
PROVIDERS: PCP Family Medicine; Visit Provider Physician Assistant Medical
DX: M25.572 Pain in left ankle and joints of left foot (principal); G89.29 Other chronic pain
CPT/HCPCS: 73610; 99212

== ENCOUNTER → 2025-02-22 15:39 | Outpatient (BNV) | payer OTHER, SELFPAY | PROVIDERS: PCP Family Medicine; Visit Provider Radiology Diagnostic Radiology | DX: M19.072 Primary osteoarthritis, left ankle and foot (principal); M21.42 Flat foot [pes planus] (acquired), left foot | CPT/HCPCS: 73610 ==

== ENCOUNTER 2025-06-10 11:00 | Outpatient (REF) | payer OTHER, SELFPAY | END 2025-06-10 11:01 | disposition home or self-care (01) | LOC: HO.WFDLDS 11:00 | PROVIDERS: PCP Family Medicine; Visit Provider Family Medicine | DX: M79.672 Pain in left foot (principal); E11.65 Type 2 diabetes mellitus with hyperglycemia; Z79.84 Long term (current) use of oral hypoglycemic drugs; Z79.899 Other long term (current) drug therapy | CPT/HCPCS: 36415; 83036; 96127; 99212 ==

== ENCOUNTER 2025-06-10 11:00 | Outpatient (AMB) | payer OTHER, SELFPAY ==
--- NOTE | 2025-06-10 11:45 | MHC.PC.OV ---
Vital Signs 06/10/25 11:50 Height 5 ft 2 in Weight 185 lb 4 oz BMI 33.9 BP 142/90 H Blood Pressure Location Rt brachial Position Sitting Respiration 18 Pulse 98 Pulse Source Pulse Oximeter Temp 97.2 F Temp Source Temporal Artery Scan Pulse Oximetry (%) 97 Oxygen Delivery Method Room Air Intake Visit Reasons: Left foot pain- A1C needed RE Intake Note: Aliza presents in the office today for left foot pain. Allergies No Known Allergies Allergy (Verified 06/10/25 11:47) Medication List - Last Reconciled 06/10/25 by Saravanan Valle MD blood pressure test kit-large As directed blood sugar diagnostic (FreeStyle Lite Strips) As directed 2x/day fenofibrate 160 mg PO DAILY 90 days glipizide ER 10 mg PO DAILY lancets (FreeStyle Lancets) As directed 2x/day metformin 500 mg PO BID 30 days metoprolol succinate ER 25 mg PO DAILY 30 days Tobacco use date assessed: 06/10/25 Dental Screening Dental Screen Date: 06/10/25 Did you have a dental visit in the last 12 months?: No Did you have a dental problem in the last 6 months where you did not have access to dental care?: No Was dental information given to patient?: Patient declined HPI Left foot pain- A1C needed RE HPI Details 54 y/o male presents today with complaints of L foot pain. Also presents to f/u diabetes. A1c today 06/10/25 11.7%. He is on metformin 500mg b.i.d, glipizide 10mg. Pt notes he has not been consistent with his medications. [facility] Medical History (Updated 06/10/25 @ 12:26 by Ranjan Carl) Hypertension Type 2 diabetes mellitus Perineal fissure Hyperlipemia Surgical History (Updated 06/28/24 @ 11:08 by Barbara Gonsales RN) Hx of arthroscopic knee surgery Family History (Updated 06/10/25 @ 11:49 by Barbara Conrad CMA) Mother High blood pressure Father Diabetes Social History (Updated 06/10/25 @ 11:49 by Barbara Conrad CMA) Household Members: None Housing: House Are you a primary hospice spiritual care coordinator to a significant other at home: No Do you presently have visiting nurse or other home services: No Alcohol intake: current Patient Tobacco Use Status: Never used Tobacco e-Cigarette/Vaping Use: Never Used Second Hand Smoke Exposure: No Use of substances other than those prescribed or required for medical reasons: No service: No Current occupational status: employed 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 1. Little interest or pleasure in doing things: not at all 2. Feeling down, depressed, or hopeless: not at all 3. Trouble falling or staying asleep, or sleeping too much: not at all 4. Feeling tired or having little energy: not at all 5. Poor appetite or overeating: not at all 6. Feeling bad about yourself - or that you are a failure or have let yourself or your family down: not at all 7. Trouble concentrating on things, such as reading the newspaper or watching television: not at all 8. Moving or speaking so slowly that other people could have noticed. Or the opposite - being so fidgety or restless that you have been moving around a lot more than usual: not at all 9. Thoughts that you would be better off or of hurting yourself in some way: not at all Total score: 0 Depression Screening Interpretation: Negative Depression Screening Done: Yes 39951 - PHQ-9 Billing: Yes Source: Developed by Drs. Hermes Becker, Cuca Martines, Pablo Dick and colleagues, with an educational saulo from [employer]. Thrive Questionnaire Date Thrive assessed: 06/27/24 I am a: Patient What is your living situation today?: I have a steady place to live Within the past 12 months, did the food you bought not last and you didn't have the money to get more?: Never true Within the past 12 months, did you worry whether your food would run out before you got money to buy more?: Never true Do you have trouble paying for medicines?: No Do you have trouble getting transportation to medical appointments?: No Do you have trouble paying your heating and electricity bill?: No Do you have trouble taking care of your child, family member or friend?: No Do you have trouble with day-to-day activities such as bathing, preparing meals, shopping, managing finances, etc.?: No Are you currently unemployed and looking for a job?: No Are you interested in more education?: No Please select the resources that you would like help with: None Currently or been in a relationship where the following occur: No concerns reported THRIVE Score: 0 AUDIT C Alcohol Use Questionnaire (AUDIT-C) 1. How often do you have a drink containing alcohol?: Monthly or less 2. How many drinks containing alcohol do you have on a typical day when you are drinking?: 1 or 2 3. How often do you have six or more drinks on one occasion?: Never Total Score: 1 RICHARD-7 AMB Questionnaire RICHARD-7 Date RICHARD - 7 assessed: 06/10/25 Feeling nervous, anxious, or on edge: 0 = Not at all Not being able to stop or control worryin = Not at all Worrying too much about different things: 0 = Not at all Trouble relaxin = Not at all Being so restless that it is hard to sit still: 0 = Not at all Becoming easily annoyed or irritable: 0 = Not at all Feeling afraid as if something awful might happen: 0 = Not at all Total RICHARD-7 score (0-4 normal; 5-9 mild; 10-14 moderate; 15-21 severe): 0 Source: Developed by Drs. Hermes Becker, Cuca Martines, Pablo Dick and colleagues, with an educational saulo from [employer]. RICHARD-7 Assessment Billing RICHARD-7 Assessment Tool: RICHARD-7 Assessment 66532 Physical exam (Primary Care) Vital Signs: Last Vital Signs Temp 97.2 F 06/10/25 11:50 Pulse 98 06/10/25 11:50 Resp 18 06/10/25 11:50 BP 142/90 H 06/10/25 11:50 Pulse Ox 97 06/10/25 11:50 Oxygen Delivery Method Room Air 06/10/25 11:50 BMI result Body Mass Index 33.9 Tobacco/Smoking Status: Tobacco use Status Tobacco use date assessed 06/10/25 06/10/25 11:55 Patient Tobacco Use Status Never used Tobacco 06/10/25 11:49 e-Cigarette/Vaping Use Never Used 06/10/25 11:49 PHQ-9: PHQ-9 Score PHQ-9: Total score 0 06/10/25 12:23 Depression Screening Interpretation: Negative Thrive Assessment: Date of Thrive Assessment Date Thrive assessed 06/27/24 06/10/25 11:47 Currently or been in a relationship where the following occur: No concerns reported Results AMB Hemoglobin A1c AMB Hemoglobin A1c 11.7 % Last Edit by Barbara Conrad CMA on 06/10/25 12:03 Results Reviewed Results Reviewed: Laboratory Last Values Hgb A1c (Clinic) 11.7 % (4.0-6.0) H 06/10/25 11:55 Coding Level of Care Code Est Pt Level 3 (21794) Diagnoses Left foot pain M79.672 Uncontrolled diabetes mellitus with hyperglycemia E11.65 Additional Codes RICHARD-7 Assessment Billing - RICHARD-7 Assessment Tool: RICHARD-7 Assessment 49432 ([id number]) PHQ-9 - 81468 - PHQ-9 Billing: Yes ([id number]) Assessment & Plan Assessment & Plan (1) Left foot pain: Code(s): M79.672 - Pain in left foot Category: Medical Plan: Recent x-rays of ankle consistent with Charcot foot Referred to ortho Encouraged patient to work on blood sugar control-below (2) Uncontrolled diabetes mellitus with hyperglycemia: Code(s): E11.65 - Type 2 diabetes mellitus with hyperglycemia Category: Medical Plan: A1c 11.7%. Uncontrolled diabetes. Patient is inconsistent with his medications Will adjust metformin to try and get more medication taking in the morning for better consistency. Encouraged a diet lower in sugars and starches Will ask the nurse navigator to work on diabetic teaching Will discuss referrals for Ophthalmology and Podiatry in the near future. Orders: Orders AMB Hemoglobin A1c Today E11.9 - Type 2 diabetes mellitus without complications Medications: Changed From glipizide ER 10 mg PO DAILY 30 tabs 0RF To glipizide ER 10 mg PO DAILY 90 tabs 3RF 90 days From metformin 500 mg PO BID 30 days 60 tabs 2RF To metformin 1000 mg a.m. and 500 mg p.m. orally 2 times a day; 90 tabs 2RF 30 days
[2025-06-10 11:50] VITALS: BP 142/90; PULSE 98; RESP 18; TEMP 36.2; O2SAT 97; BMI 33.9
== END 2025-06-10 12:34 | disposition home or self-care (01) ==
LOC: HO.HMCFM 11:01
PROVIDERS: PCP Family Medicine; Visit Provider Family Medicine
DX: M79.672 Pain in left foot (principal); E11.65 Type 2 diabetes mellitus with hyperglycemia; E11.9 Type 2 diabetes mellitus without complications

== ENCOUNTER 2025-06-27 11:20 | Outpatient (AMB) | payer OTHER, SELFPAY ==
[2025-06-27 11:55] VITALS: BMI 32.9
--- NOTE | 2025-06-27 11:55 | A.OFFVIS_ITS ---
Vital Signs 06/27/25 11:55 Height 5 ft 2 in Weight 180 lb BMI 32.9 Intake Visit Reasons: left ankle pain unable to stand/fracture 10 yrs ag Intake Note: marilee is a 54 year old male who presents today as a new patient for an evaluation of his left ankle pain. Patient reports he currently experiences pain and instability in the ankle that impacts his ability to walk. He has history of a fracture occurring about 10 years ago. Patient was given a brace and found no relief for his symptoms Allergies No Known Allergies Allergy (Verified 06/27/25 11:58) HPI HPI left ankle pain unable to stand/fracture 10 yrs ag: Details: 54-year-old male with past medical history of diabetes mellitus type 2 and hypertension presents for chronic left ankle pain. Patient notes a history of injuring the left ankle proximally 10-13 years ago. He states his ankle had ' turned out' however he never thought it was fractured and continued to walk it off. He never sought medical treatment at that time. He has had worsening progressive ankle pain and deformity since then. He has tried bracing in the past, stating it does not provide enough relief for support. Patient does endorse that he is diabetic. Denies numbness burning or tingling to his feet. Also endorses history of alcohol use, drinking beer, wine, and vodka frequently. Denies smoking history. [facility] Medical History (Updated 06/27/25 @ 15:23 by Patricio Hernandez DPM) Hypertension Type 2 diabetes mellitus Perineal fissure Hyperlipemia Surgical History (Updated 06/28/24 @ 11:08 by Barbara Gonsales RN) Hx of arthroscopic knee surgery Family History (Updated 06/10/25 @ 11:49 by Barbara Conrad CMA) Mother High blood pressure Father Diabetes Social History (Updated 06/10/25 @ 11:49 by Barbara Conrad CMA) Household Members: None Housing: House Are you a primary aged or disabled carer to a significant other at home: No Do you presently have visiting nurse or other home services: No Alcohol intake: current Patient Tobacco Use Status: Never used Tobacco e-Cigarette/Vaping Use: Never Used Second Hand Smoke Exposure: No service: No Current occupational status: employed 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 Interdigital spaces: Clear, no maceration or fungal infection. Nails: No onychomycosis, paronychia, or ingrown nails. Neuro: Protective sensation grossly diminished bilateral lower extremities Msk: Significant ankle valgus with large protrusion of the medial malleolus, talar head, and navicular. Total ankle range of motion approximately 10 degrees dorsiflexion to plantar flexion. Minimal subtalar joint motion. No pain along the tarsometatarsal joint or midtarsal joints. Deformities: No evidence of hammertoes, bunions, Charcot changes, or other structural abnormalities. Muscle strength: 5/5 in all muscle groups. Gait: Severe abducted gait bilaterally, worse to the left foot. Footwear Assessment: Shoes inspected; appropriate fit, no excessive wear, or foreign objects noted. Assessment & Plan Assessment & Plan (1) Arthritis of ankle, left: Code(s): M19.072 - Primary osteoarthritis, left ankle and foot Category: Medical Plan: * Reviewed left ankle x-rays with the patient. * Discussed conservative treatment options including custom AFO bracing and surgical treatment options which would most likely be tibiotalocalcaneal fusion via IM nail. Postoperative weight-bearing protocol includes nonwei ghtbearing for 4-8 weeks, followed by protected weight-bearing for 6-8 weeks. He may still require a custom brace after treatment. * Referred for CT scan left lower extremity and left foot/calc weightbearing x- rays to evaluate subtalar joint and midtarsal joints. * Recommended surgical treatment for definitive fixation to avoid compensatory changes to his foot and knee, and possible further Charcot neuroarthropathy episodes. * The patient states he is interested in surgical treatment at this time. It was explained to him however the he will need to reduce his A1c to at least under 8%, ideally goal under 7%. He was also recommended alcohol cessation. Elective surgery with elevated A1c Risks include wound dehiscence, infection, osteomyelitis, delayed union, nonunion, malunion, hardware failure, and below- knee amputation. * Follow up in 1 month to discuss imaging results (2) Acquired valgus deformity of ankle: Code(s): M21.079 - Valgus deformity, not elsewhere classified, unspecified ankle Category: Medical Plan: * Recommended TTC fusion (3) Uncontrolled diabetes mellitus with hyperglycemia: Code(s): E11.65 - Type 2 diabetes mellitus with hyperglycemia Category: Medical Qualifiers: Diabetes mellitus type: type 2 Qualified Code(s): E11.65 - Type 2 diabetes mellitus with hyperglycemia Plan: * Referred to endocrinology Orders: Orders XR foot LT min 3V Today M19.072 - Primary osteoarthritis, left ankle and foot XR calcaneus LT min 2V Today M19.072 - Primary osteoarthritis, left ankle and foot CT lower leg LT wo IV con Today E11.65 - Type 2 diabetes mellitus with hyperglycemia, M19.072 - Primary osteoarthritis, left ankle and foot Referrals Endocrinology Referral E11.65 - Type 2 diabetes mellitus with hyperglycemia Coding Level of Care Code New Pt Level 4 (48304) Diagnoses Arthritis of ankle, left M19.072 Acquired valgus deformity of ankle M21.079 Uncontrolled type 2 diabetes mellitus with hyperglycemia E11.65 Diabetes mellitus type: type 2 Time Spent (min) 45
== END 2025-06-27 11:34 | disposition home or self-care (01) ==
LOC: HO.HPODS 11:21
PROVIDERS: PCP Family Medicine; Visit Provider Student in an Organized Health Care Education/Training Program
DX: M19.072 Primary osteoarthritis, left ankle and foot (principal); M21.079 Valgus deformity, not elsewhere classified, unspecified ankle; E11.65 Type 2 diabetes mellitus with hyperglycemia
CPT/HCPCS: 99204

== ENCOUNTER → 2025-06-27 11:20 | Outpatient (BNVA) | payer OTHER, SELFPAY | PROVIDERS: PCP Family Medicine; Visit Provider Student in an Organized Health Care Education/Training Program | DX: M19.072 Primary osteoarthritis, left ankle and foot (principal); M21.079 Valgus deformity, not elsewhere classified, unspecified ankle; E11.65 Type 2 diabetes mellitus with hyperglycemia | CPT/HCPCS: 99202 ==

== ENCOUNTER 2025-07-14 10:37 | Outpatient (AMB) | payer OTHER, SELFPAY ==
--- NOTE | 2025-07-14 10:44 | A.OFFVIS_ITS ---
Vital Signs 07/14/25 10:46 Height 5 ft 2 in Weight 196 lb 3.382 oz BMI 35.9 BP 144/90 H Blood Pressure Location Rt brachial Position Sitting Pulse 96 Pulse Source Pulse Oximeter Pulse Oximetry (%) 96 Oxygen Delivery Method Room Air Intake Visit Reasons: Type 2 diabetes mellitus with hyperglycemia Intake Note: NEW Patient presents today to establish treatment for Type 2 Diabetes Mellitus: Last Diabetic eye exam was on: DUE, needs a new referral Last Podiatry exam was on: Patient does not see a Communications Planner Most recent HbA1c: 12.1%, 06/10/2025, [facility] Random Glucose: 158 mg/dL Offset Press Assistant Required: No Accompanied by: Self / Same As Patient Allergies No Known Allergies Allergy (Verified 07/14/25 10:44) HPI Comments Details: The patient is a 54 year old male presenting for consult for uncontrolled type 2 diabetes Med history: HTN, HLD Diagnosed: ~35 Current medications Glipizide 10mg daily Metformin 1000mg am, 500pm He says he has been compliant with the medications for the past month. Reports fasting glucose 130-160s. Denies readings <70 Spent a lot of time today discussing how he does not like medications due to their potential side effects He has been eating more salads but still eating a lot of potatoes and other carbohydrates Declines CDE, nutrition referral Family history Father diabetic Denies neuropathy Following with podiatry for ankle pain He is overdue for eye exam Overdue for lipids and urine ROS CONSTITUTIONAL: Denies weight loss, fever and chills. HEENT: Denies changes in vision and hearing. RESPIRATORY: Denies SOB and cough. CV: Denies palpitations and CP GI: Denies abdominal pain, nausea, vomiting and diarrhea. : Denies dysuria and urinary frequency. MSK: Denies new myalgia and joint pain. SKIN: Denies rash and pruritus. NEUROLOGICAL: Denies headache PSYCHIATRIC: Denies recent changes in mood. PHYSICAL EXAM: GENERAL: Alert and oriented x 3. NAD EYES: EOMI. Anicteric. HENT: Moist mucous membranes. No scleral icterus. No cervical lymphadenopathy. LUNGS: Clear to auscultation bilaterally. CARDIOVASCULAR: Regular rate and rhythm. No murmur. No JVD. ABDOMEN: Soft, non-tender +bs EXTREMITIES: No edema. Non-tender. SKIN: No rashes or lesions. Warm. NEUROLOGIC: No focal neurological deficits. CN II-XII grossly intact PSYCHIATRIC: Cooperative. Appropriate mood and affect [facility] Medical History Hypertension Type 2 diabetes mellitus Perineal fissure Hyperlipemia Surgical History Hx of arthroscopic knee surgery Family History Mother High blood pressure Father Diabetes Social History Household Members: None Housing: House Are you a primary child care to a significant other at home: No Do you presently have visiting nurse or other home services: No Alcohol intake: current Patient Tobacco Use Status: Never used Tobacco e-Cigarette/Vaping Use: Never Used Second Hand Smoke Exposure: No service: No Current occupational status: employed 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, 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 Cognitive needs: No Hearing needs: No Vision needs: No Physical Exam Vital Signs: Last Vital Signs BP 144/90 H 07/14/25 10:46 Oxygen Delivery Method Room Air 07/14/25 10:46 BMI result Body Mass Index 35.9 Assessment & Plan Assessment & Plan (1) Uncontrolled diabetes mellitus with hyperglycemia: Code(s): E11.65 - Type 2 diabetes mellitus with hyperglycemia Category: Medical Qualifiers: Diabetes mellitus type: type 2 Qualified Code(s): E11.65 - Type 2 diabetes mellitus with hyperglycemia Plan The patient is a 54 year old male presenting for diabetic consultation Discussed goal A1C, goal fasting glucose and goal glucose after meals He will log is fasting blood glucose numbers. They do seem to have improved with increase in metformin, and increase in actual compliance Treat hypoglycemia by rules of 15s. Declines CDE nutrition referral Ophtho referral placed Follow up in 2 months or sooner as needed Orders: Orders Comprehensive Met. Panel Today E11.65 - Type 2 diabetes mellitus with hyperglycemia Lipid Panel Today E11.65 - Type 2 diabetes mellitus with hyperglycemia Glutamic acid decarboxylase Ab Today E11.65 - Type 2 diabetes mellitus with hy perglycemia Islet Cell Antibody Scrn/Titer Today E11.65 - Type 2 diabetes mellitus with hyperglycemia Referrals Ophthalmology Referral E11.65 - Type 2 diabetes mellitus with hyperglycemia Medications: Changed From blood sugar diagnostic (FreeStyle Lite Strips) As directed 2x/day 50 ea 1RF E11.65 - Type 2 diabetes mellitus with hyperglycemia To FreeStyle Lite Strips (blood sugar diagnostic) once daily and as needed 100 ea 3RF NS E11.65 - Type 2 diabetes mellitus with hyperglycemia From lancets (FreeStyle Lancets) As directed 2x/day 100 ea 1RF To FreeStyle Lancets (lancets) once daily and as needed 100 ea 3RF NS Coding Level of Care Code Est Pt Level 4 (51794) Complex EM visit Add On G2211 Diagnoses Uncontrolled type 2 diabetes mellitus with hyperglycemia E11.65 Diabetes mellitus type: type 2
[2025-07-14 10:46] VITALS: BP 144/90; PULSE 96; O2SAT 96; BMI 35.9
[2025-07-14 11:01] LABS: Glucose, Whole Blood 158 mg/dL (60-115)
--- OUTSIDE RECORDS SUMMARY | 2025-07-14 13:02 | XMS_ITS | Clinical Summary ---
Author Organization [employer] Address [address] [place] [address] [address] [place] [address] Care Team Providers Care Process Automation Engineer Name Role Phone Unavailable Primary Care Provider [...] (1 of 2) 2021 COVID-19 Vaccine (1 2023-2 5 season) 2025 Influenza Vaccine (#1) 2025 Lipid Panel 11/23/2026 11/23/2021, 11/28/2020 RSV [...] LDL-C. Alfa SS et al. IKE. 2013;310(19): 0905-1517 (http://[email or web address].Boxbe/faq/SLM335) Non-HDL Cholesterol 345(H) <130 mg/dL (calc) [facility] [...] MD LAB BLOOD ORDERABLES Fin al Result [facility] [address] from Last 3 Months or Most Recently Relevant to Health Maintenance
== END 2025-07-14 11:23 | disposition home or self-care (01) ==
LOC: HO.ENCR 10:38
PROVIDERS: PCP Family Medicine; Visit Provider Internal Medicine
DX: E11.65 Type 2 diabetes mellitus with hyperglycemia (principal)

== ENCOUNTER → 2025-07-14 10:37 | Outpatient (BNVA) | payer OTHER, SELFPAY | PROVIDERS: PCP Family Medicine; Visit Provider Internal Medicine | DX: E11.65 Type 2 diabetes mellitus with hyperglycemia (principal) | CPT/HCPCS: 82947; 99212 ==

== ENCOUNTER 2025-07-14 11:27 | Outpatient (REF) | payer OTHER, SELFPAY ==
[2025-07-14 14:18] LABS: Alanine Aminotransferase 35 U/L (0-40); Albumin Level 4.7 g/dL (3.5-5.0); Alkaline Phosphatase 68 U/L (39-117); Anion Gap 11 (12-20); Aspartate Amino Transferase 34 U/L (5-37); Blood Urea Nitrogen 13 mg/dL (9-16); Calcium 10.2 mg/dL (8.4-10.2); Carbon Dioxide 27 mmol/L (22-29); Chloride 105 mmol/L (96-108); Cholesterol 261 mg/dL (<200); Estimated Glomerular Filt Rate > 60; HDL Cholesterol 38 mg/dL (>40); Potassium 4.2 mmol/L (3.3-5.1); Sodium 139 mmol/L (135-145); Total Protein 7.4 g/dL (6.5-8.0); Triglycerides 525 mg/dL (<150)
== END 2025-07-14 11:28 | disposition home or self-care (01) ==
LOC: HO.10HDL 11:27
PROVIDERS: Visit Provider Internal Medicine
DX: E11.65 Type 2 diabetes mellitus with hyperglycemia (principal); Z01.84 Encounter for antibody response examination
CPT/HCPCS: 36415; 80053; 80061; 86341

== ENCOUNTER 2025-08-18 09:22 | Outpatient (REF) | payer OTHER, SELFPAY ==
--- NOTE | ~2025-08-18 | CT_ITS ---
Exam: CT Lower Leg Lt Wo Iv Con Indication: E11.65 - Type 2 diabetes mellitus with hyperglycemia Technique: Axial CT imaging was performed from just above the knee through the midfoot. Coronal and sagittal reformatted images were generated from the original axial data set. ALARA: The examination used one or more of the following radiation dose reduction techniques: Automated exposure control, iterative reconstruction, and/or adjustment of mA and/or KV. 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 There are postoperative changes from ACL reconstruction. A sonographic appears grossly intact. There is no knee joint effusion. MCL and LCL complex are grossly intact. There is mild narrowing of the medial joint space of the knee with minute marginal osteophytes. There is atherosclerotic calcification in the posterior tibial artery The ankle, the medial, anterior, and peroneal tendons are grossly intact. Achilles tendon is intact and unremarkable. There is ossification in the anterior syndesmotic ligament. Anterior talofibular ligament is thickened with decreased density. There is an effusion in the sinus tarsi. There is an os trigonum. There are moderate degenerative changes in the talotibial joint with marginal osteophytes and anterior joint space narrowing. There is moderate degenerative change in the hindfoot with osteophytes. There is a degenerative cyst adjacent posterior facet of calcaneus measuring 13 x 20 mm (CC by AP). There are also ossified fragments in the dorsal hindfoot. There is an ossification extending from the lateral cortex of the distal tibial metadiaphysis into the interosseous space. CT/CT lower leg LT wo IV con IMPRESSION: Mild osteoarthritis of the knee. ACL reconstruction with intact graft. Moderate degenerative changes in the hindfoot and ankle with bony debris consistent with diabetic neuropathy. Electronically signed by: Arturo Morel MD 08/18/2025 11:23 AM [facility] [place]
== END 2025-08-18 09:23 | disposition home or self-care (01) ==
LOC: HO.CT 09:22
PROVIDERS: PCP Family Medicine; Visit Provider Student in an Organized Health Care Education/Training Program
DX: E11.65 Type 2 diabetes mellitus with hyperglycemia (principal); M19.072 Primary osteoarthritis, left ankle and foot
CPT/HCPCS: 73700

== ENCOUNTER → 2025-08-18 09:24 | Outpatient (BNV) | payer OTHER, SELFPAY | PROVIDERS: PCP Family Medicine; Visit Provider Radiology Diagnostic Radiology | DX: M17.12 Unilateral primary osteoarthritis, left knee (principal); E11.65 Type 2 diabetes mellitus with hyperglycemia | CPT/HCPCS: 73700 ==